=== PATIENT | male | born 1990 | race Hispanic/Latino ===

== ENCOUNTER 2017-05-13 | Emergency (ER) | payer SELFPAY ==
--- NOTE | 2017-05-13 13:26 | EDPHYS ---
Physician Documentation [facility] Name: Isrrael Barrientos Age: 26 yrs Sex: Male : 1990 Arrival Date: 05/13/2017 Time: 11:19 Bed 14 Private MD: ED Physician Salas Frey HPI: 05/13 13:24 This 26 yrs old Male presents to ER via Ambulatory with complaints of Rash. pm1 13:24 The patient's rash thought to be caused by an unknown cause. The rash is located on the pm1 left breast and left upper back. The rash can be described as macular, vesicular. Onset: The symptoms/episode began/occurred 3 day(s) ago. Associated signs and symptoms: Pertinent positives: burning sensation, itching, Headache for 2 days, Pertinent negatives: fever, nausea, swelling of lips, swelling of throat, swelling of tongue, vomiting. Severity of symptoms: in the emergency department the symptoms are worse. Treatment given at home: None. The patient has not experienced similar symptoms in the past. The patient has been recently seen by a physician: Patient was seen at [place] for complaints of chest pain and back pain 1 week ago. Patient without a rash present at that time. Historical: - Allergies: 11:37 No Known Allergies; hb - Home Meds: 11:37 Risperdal Oral [Active]; Paxil Oral [Active]; Lisinopril Oral [Active]; Metformin Oral hb [Active]; - PMHx: 11:37 Bipolar disorder; Anxiety; Diabetes - NIDDM; Hypertension; hb - PSHx: 11:37 None; hb - Immunization history:: Adult Immunizations up to date. - Social history:: Smoking status: Patient uses tobacco products, denies chronic smoking, but will smoke occasionally. ROS: 13:24 Constitutional: Negative for fever, chills, and weight loss, Eyes: Negative for injury, pm1 pain, redness, and discharge, ENT: Negative for injury, pain, and discharge, Neck: Negative for injury, pain, and swelling, Cardiovascular: Negative for chest pain, palpitations, and edema, Respiratory: Negative for shortness of breath, cough, wheezing, and pleuritic chest pain, Abdomen/GI: Negative for abdominal pain, nausea, vomiting, diarrhea, and constipation, Back: Negative for injury and pain, MS/Extremity: Negative for injury and deformity. 13:24 Neuro: Negative for weakness, numbness, tingling, and seizure, Positiv for headache 13:24 Skin: Positive for rash, of the left chest and left upper back. Exam: 13:24 Constitutional: This is a well developed, well nourished patient who is awake, alert, pm1 and in no acute distress. Head/Face: Normocephalic, atraumatic. Eyes: Pupils equal round and reactive to light, extra-ocular motions intact. Lids and lashes normal. Conjunctiva and sclera are non-icteric and not injected. Cornea within normal limits. Periorbital areas with no swelling, redness, or edema. ENT: Nares patent. No nasal discharge, no septal abnormalities noted. Tympanic membranes are normal and external auditory canals are clear. Oropharynx with no redness, swelling, or masses, exudates, or evidence of obstruction, uvula midline. Mucous membranes moist. Neck: Trachea midline, no thyromegaly or masses palpated, and no cervical lymphadenopathy. Supple, full range of motion without nuchal rigidity, or vertebral point tenderness. No Meningismus. Chest/axilla: Normal chest wall appearance and motion. Nontender with no deformity. No lesions are appreciated. Cardiovascular: Regular rate and rhythm with a normal S1 and S2. No gallops, murmurs, or rubs. Normal PMI, no JVD. No pulse deficits. Respiratory: Lungs have equal breath sounds bilaterally, clear to auscultation and percussion. No rales, rhonchi or wheezes noted. No increased work of breathing, no retractions or nasal flaring. Abdomen/GI: Soft, non-tender, with normal bowel sounds. No distension or tympany. No guarding or rebound. No evidence of tenderness throughout. Back: No spinal tenderness. No costovertebral tenderness. Full range of motion. 13:24 Skin: consistent with zoster, Along T4 dermatome on left side of body. 13:24 Neuro: Orientation: is normal, Mentation: is normal, Cerebellar function: normal finger to nose testing, Motor: is normal, moves all fours, strength is normal, strength is 5/5 in all extremities, Sensation: is normal, no obvious gross deficits, Gait: is steady, at a normal pace, without difficulty. Vital Signs: 11:34 BP 136 / 98; Pulse 108; Resp 16; Temp 99(TE); Pulse Ox 98% on R/A; Weight 108.86 kg; hb Height 5 ft. 6 in. (167.64 cm); Pain 4/10; 11:34 Body Mass Index 38.74 (108.86 kg, 167.64 cm) hb MDM: 13:03 Patient medically screened. pm1 13:20 Refusal of service: The patient/guardian displays adequate decision making capability pm1 and despite a detailed discussion of alternatives, benefits, risks, and consequences refuses: CT Scan. 13:24 Data reviewed: vital signs. Data interpreted: Pulse oximetry: on room air is 98 %. pm1 Interpretation: normal. Counseling: I had a detailed discussion with the patient and/or guardian regarding: the historical points, exam findings, and any diagnostic results supporting the discharge/admit diagnosis, the need for outpatient follow up, to return to the emergency department if symptoms worsen or persist or if there are any questions or concerns that arise at home. Administered Medications: No medications were administered Disposition: 15:26 Co-signature as Attending Physician, Salas Frey MD I agree with the assessment and kdr plan of care. Disposition: 05/13/17 13:25 Discharged to Home. Impression: Zoster [herpes zoster]. - Condition is Stable. - Discharge Instructions: Shingles. - Prescriptions for Acyclovir 800 mg Oral Tablet - take 1 tablet by ORAL route 5 times per day for 10 days; 50 tablet. Tylenol- Codeine #3 300-30 mg Oral Tablet - take 2 tablet by ORAL route every 6 hours As needed; 30 tablet. - Medication Reconciliation Form, Thank You Letter, Antibiotic Education form. - Follow up: Emergency Department; When: As needed; Reason: Worsening of condition. Follow up: Private Physician; When: 2 - 3 days; Reason: Recheck today's complaints, Continuance of care, Re-evaluation by your physician. - Problem is new. - Symptoms have improved. Signatures: Salas Frey MD MD [facility] Kellen Reyes RN RN ss Charly Calix, ROSEMARY RN LIAISON pm1 Sheree Canales, RN RN Corrections: (The following items were deleted from the chart) 15:40 13:24 Neuro: Negative for headache, weakness, numbness, tingling, and seizure, pm1 pm1
--- NOTE | 2017-05-13 13:26 | ER ---
Nurse's Notes [facility] Name: Isrrael Barrientos Age: 26 yrs Sex: Male : 1990 Arrival Date: 05/13/2017 Time: 11:19 Bed 14 Private MD: Diagnosis: Zoster [herpes zoster] Presentation: 05/13 11:35 Presenting complaint: Patient states: Itchy, painful rash to left upper chest x 1 week, hb throbbing headache x 2 days. Transition of care: patient was not received from another setting of care. Onset of symptoms is unknown. Care prior to arrival: None. 11:35 Method Of Arrival: Ambulatory hb 11:35 Acuity: JAK 3 hb Historical: - Allergies: 11:37 No Known Allergies; hb - Home Meds: 11:37 Risperdal Oral [Active]; Paxil Oral [Active]; Lisinopril Oral [Active]; Metformin Oral hb [Active]; - PMHx: 11:37 Bipolar disorder; Anxiety; Diabetes - NIDDM; Hypertension; hb - PSHx: 11:37 None; hb - Immunization history:: Adult Immunizations up to date. - Social history:: Smoking status: Patient uses tobacco products, denies chronic smoking, but will smoke occasionally. Screenin:53 Abuse screen: Denies threats or abuse. Nutritional screening: No deficits noted. ae1 Tuberculosis screening: No symptoms or risk factors identified. Fall Risk None identified. Assessment: 13:00 General: Appears in no apparent distress. uncomfortable, obese, Behavior is calm, ae1 cooperative. Pain: Complains of pain in diaphragm, left lateral anterior chest, left lateral posterior chest and left breast. Neuro: Level of Consciousness is awake, alert, obeys commands, Oriented to person, place, time, situation. Cardiovascular: skin is warm and dry with the exception of the right side and right back area where rash is present. Respiratory: Airway is patent Respiratory effort is even, unlabored, Respiratory pattern is regular, symmetrical. GI: No signs and/or symptoms were reported involving the gastrointestinal system. : No signs and/or symptoms were reported regarding the genitourinary system. EENT: No signs and/or symptoms were reported regarding the EENT system. Derm: Rash noted that is itchy, red, raised, vesicular, on diaphragm, left lateral anterior chest, left lateral posterior chest, left nipple and left breast. Musculoskeletal: No signs and/or symptoms reported regarding the musculoskeletal system. 14:00 Reassessment: Patient appears in no apparent distress at this time. No changes from ae1 previously documented assessment. Patient and/or family updated on plan of care and expected duration. Pain level reassessed. 14:15 Reassessment: Awaiting discharge paper and prescriptions to print. ae1 Vital Signs: 11:34 BP 136 / 98; Pulse 108; Resp 16; Temp 99(TE); Pulse Ox 98% on R/A; Weight 108.86 kg; hb Height 5 ft. 6 in. (167.64 cm); Pain 4/10; 11:34 Body Mass Index 38.74 (108.86 kg, 167.64 cm) hb ED Course: 11:19 Patient arrived in ED. mr 11:36 Triage completed. hb 11:37 Arm band placed on right wrist. hb 12:57 Cristhian Landon, RN is Primary Nurse. ae1 13:00 Placed in gown. Bed in low position. Call light in reach. Side rails up X 1. ae1 13:01 Charly Calix NP is PHCP. pm1 13:01 Salas Frey MD is Attending Physician. pm1 14:30 No provider procedures requiring assistance completed. Patient did not have IV access ss during this emergency room visit. Administered Medications: No medications were administered Outcome: 13:25 Discharge ordered by MD. pm1 14:30 Discharged to home ambulatory. ss 14:30 Condition: good 14:30 Discharge instructions given to patient, Instructed on discharge instructions, follow up and referral plans. medication usage, Demonstrated understanding of instructions, follow-up care, medications, Prescriptions given X 2. 14:30 Patient left the ED. ss Signatures: Arielle Diez mr ReyesKellen, CAM LEVY Charly Calix NP UPHOLSTERER APPRENTICE pm1 Sheree Canales RN RN Cristhian Landon RN RN ae1
== END 2017-05-13 14:30 | disposition home or self-care (01) ==
CPT/HCPCS: 99282

== ENCOUNTER 2024-06-20 11:39 | Inpatient (IN) | payer SELFPAY ==
[2024-06-20] MEDS ORDERED: ONDANSETRON 4 MG/2 ML VIAL ONE (13:07)
[2024-06-20] MEDS ORDERED: NA CHLORIDE 0.9% 1,000 ML ONE ×3 (13:08→16:02)
[2024-06-20] MEDS ORDERED: FAMOTIDINE 20 MG/2 ML VIAL IV ONE (13:08)
[2024-06-20] MEDS ORDERED: MORPHINE 4 MG/ML SYR ONE ×2 (13:08→14:18)
[2024-06-20 13:10] LABS: Absolute Lymphocytes (CBC) 1.1 K/uL (0.7-4.9); Absolute Monocytes 1.1 K/uL (0.1-1.3); Absolute Neutrophil 19.7 K/uL (1.8-8.0); Basophils % 0.1 % (0-1.3); Eosinophils % 0.2 % (0-4.4); Hematocrit 42.6 % (39.6-49.0); Hemoglobin 14.8 g/dL (13.6-17.9); Lymphocytes % 4.9 % (15.3-44.8); MCH 32.6 pg (27.0-35.0); MCHC 34.6 g/dL (32.0-36.0); Neutrophils % 89.8 % (41.7-73.7); Platelets 240 thou/uL (152-406); RBC Red Blood Cell Count 4.53 M/uL (4.33-5.43); Red Cell Distribution Width 13.8 % (12.1-15.2)
[2024-06-20 13:41] LABS: Albumin 3.7 g/dL (3.4-5.0); Albumin/Globulin Ratio 1.2 (1.1-1.8); Anion Gap 10.7 mEq/L (5.0-15.0); Bilirubin Total 0.9 mg/dL (0.2-1.0); Potassium 3.7 mEq/L (3.5-5.1); Protein, Total 6.7 g/dL (6.4-8.2)
--- NOTE | 2024-06-20 13:51 | RAD REPORT ---
EXAMINATION: Abdomen Pelvis W Contrast CLINICAL INDICATION: Male, 33 years old.ABD PAIN TECHNIQUE: CT abdomen and pelvis was performed, after the administration of IV contrast, [facility]. Axial, sagittal and coronal reconstructions were obtained. One or more of the following dose reduction techniques were used: Automated exposure control, adjustment of the mA and/o r kV according to patient size, and/or iterative reconstruction. Unless otherwise specified, incidental findings do not require dedicated imaging follow-up. [id number]. COMPARISON: No prior exam. FINDINGS: LOWER CHEST: Trace pleural effusions with atelectasis.No significant pericardial effusion. UPPER GI: No significant abnormality. LIVER: No significant focal abnormality. GALLBLADDER/BILE DUCTS: Sludge versus vicarious excretion of contrast.?No pericholecystic inflammator y changes. PANCREAS: No mass, ductal dilation, or ciera-pancreatic fluid. SPLEEN: Unremarkable. ADRENALS: No adrenal masses. KIDNEYS AND URETERS: No hydronephrosis.No suspicious renal mass. ABDOMINAL AORTA AND OTHER VESSELS: Normal caliber aorta and IVC. PERITONEUM: No abnormal free fluid. No free air. LYMPH NODES: No pathologic lymphadenopathy. ABDOMINAL WALL: Unremarkable SMALL BOWEL/COLON: Circumferential wall thickening involving the colon which extends from the distal transverse colon through the mid sigmoid. Scattered air-fluid levels are present. Fluid present within the distal small bowel. Normal appendix. URINARY BLADDER: Underdistended but grossly unremarkable. REPRODUCTIVE ORGANS: No pathologic process. MUSCULOSKELETAL: No acute or suspicious osseous abnormality. ADDITIONAL FINDINGS: None. IMPRESSION: Colitis extending from the distal transverse colon to the proximal sigmoid. Fluid contents within the more proximal colon consistent with diarrheal. No bowel obstruction. Normal appendix.
[2024-06-20] MEDS ORDERED: CIPROFLOXACIN 400mg IV 400 MG/200 ML BAG IV ONE (14:18)
[2024-06-20] MEDS ORDERED: METRONIDAZOLE 500mg IVPB 500 MG/100 ML BAG IV ONE (14:18)
--- NOTE | 2024-06-20 14:40 | ER ---
Nurse's Notes [facility] Name: Isrrael Barrientos Age: 33 yrs Sex: Male : 1990 Arrival Date: 06/20/2024 Time: 11:39 Bed 10 Private MD: Diagnosis: Abdominal tenderness;Vomiting;Diarrhea, unspecified;Left sided colitis;Fever, unspecified;Elevated white blood cell count;Severe sepsis without septic shock Presentation: 06/20 11:50 Chief complaint: Patient states: he went to [facility] ER on 6 w/abdominal pain and was dx me1 w/constipation and was given laxatives and sent home. Now having liquid bowel movements but pain is worsening. diffuse abd pain 10/10, sharp with nausea/vomiting. Patient does take lithium and is concerned it could be causing his abdominal pain. Coronavirus screen: Vaccine status: Patient reports being unvaccinated. Ebola Screen: No symptoms or risks identified at this time. Initial Sepsis Screen: Does the patient meet any 2 criteria? HR > 90 bpm. Does the patient have a suspected source of infection? No. Patient's initial sepsis screen is negative. Risk Assessment: Do you want to hurt yourself or someone else? Patient reports no desire to harm self or others. Onset of symptoms was June 19, 2024. 11:50 Method Of Arrival: Ambulatory me1 11:50 Acuity: JAK 3 me1 Historical: - Allergies: 11:53 No Known Allergies; me1 - PMHx: 11:53 Anxiety; Bipolar disorder; Diabetes - NIDDM; Hypertension; me1 - PSHx: 11:53 None; me1 - Immunization history:: Adult Immunizations up to date. - Infectious Disease History:: Denies. - Social history:: Smoking status: Patient reports the use of cigarette tobacco products, smokes one-half pack cigarettes per day. - Family history:: not pertinent. Screenin:30 [facility] ED Fall Risk Assessment (Adult) History of falling in the last 3 months, me1 including since admission No falls in past 3 months (0 pts) Confusion or Disorientation No (0 pts) Intoxicated or Sedated No (0 pts) Impaired Gait No (0 pts) Mobility Assist Device Used No (0 pt) Altered Elimination No (0 pt) Score/Fall Risk Level 0 - 2 = Low Risk Maintained a safe environment, Provided non-skid footwear, Hourly rounding (assess needs \T\ fall precautionary measures) done. Abuse screen: Denies threats or abuse. Nutritional screening: No deficits noted. Tuberculosis screening: No symptoms or risk factors identified. Assessment: 13:30 General: Appears uncomfortable, well groomed, well developed, well nourished, Behavior me1 is calm, cooperative, appropriate for age. Pain: Complains of pain in abdomen Pain does not radiate. Pain currently is 10 out of 10 on a pain scale. Quality of pain is described as crampy, sharp, Pain began 2-3 days ago. Is continuous. Neuro: Level of Consciousness is awake, alert, obeys commands, Oriented to person, place, time, situation, Appropriate for age. Cardiovascular: Patient's skin is warm and dry. Respiratory: Airway is patent Respiratory effort is even, unlabored, Respiratory pattern is regular, symmetrical. GI: Abdomen is round Bowel sounds present X 4 quads. Abd is soft X 4 quads Reports lower abdominal pain, upper abdominal pain, nausea, vomiting. : No signs and/or symptoms were reported regarding the genitourinary system. EENT: No signs and/or symptoms were reported regarding the EENT system. Derm: Skin is intact, is healthy with good turgor, Skin is pink, warm \T\ dry. Musculoskeletal: No signs and/or symptoms reported regarding the musculoskeletal system. Vital Signs: 11:50 BP 96 / 69; Pulse 106; Resp 17; Temp 99.2; Pulse Ox 96% ; Weight 113.4 kg; Height 5 ft. me1 8 in. ; Pain 10/10; 13:00 BP 118 / 73; Pulse 102; Resp 16; Pulse Ox 97% ; me1 13:58 BP 133 / 74; Pulse 100; Resp 17; Pulse Ox 96% ; me1 15:00 BP 149 / 79; Pulse 103; Resp 17; Pulse Ox 99% ; me1 16:00 BP 133 / 78; Pulse 109; Resp 20; Temp 100.5(A); Pulse Ox 99% ; me1 17:00 BP 132 / 74; Pulse 102; Resp 18; Pulse Ox 99% ; me1 11:50 Body Mass Index 38.01 (113.40 kg, 172.72 cm) [facility] 11:50 Pain Scale: Adult [facility] [place] Course: 11:43 Patient arrived in ED. gl 11:44 Gurmeet Loo MD is Attending Physician. [facility] 11:53 Triage completed. nc1 11:53 Arm band placed on Patient placed in an exam room. nc1 12:55 Initial lab(s) drawn, by nc, sent to lab. Inserted saline lock: 20 gauge in left db antecubital area, using aseptic technique. Blood collected. Flushed with 10 mL NS. 13:30 Candace Fernandes, CAM is Primary Nurse. nc1 13:30 Patient has correct armband on for positive identification. Bed in low position. Call nc1 light in reach. Side rails up X 1. Provided Education on: POC. Verbalized understanding.. Client placed on continuous cardiac and pulse oximetry monitoring. NIBP monitoring applied. Pulse ox on. NIBP on. 13:30 No provider procedures requiring assistance completed. me1 13:36 CT Abd/Pelvis - IV Contrast Only In Process Unspecified. EDGA 14:38 Radha Cisneros MD is Hospitalizing Provider. [facility] 15:17 Lactate w/ 2H reflex if indic. Sent. nc1 15:39 EKG done, by ED staff, reviewed by Gurmeet Loo MD. me1 16:01 Notified ED physician of a critical lab result(s). lactate 2.8. nc1 16:57 Patient admitted, IV remains in place. [facility] [place]ered Medications: 13:10 Drug: Ondansetron IVP 4 mg IVP once; over 2 minutes Route: IVP; Site: left antecubital; db 13:59 Follow up: Response: No adverse reaction; Nausea is decreased [facility] 13:10 Drug: morphine IVP or IV 4 mg IVP once over 4 mins Route: IVP; Infused Over: 4 mins; db Site: left antecubital; 13:59 Follow up: Response: No adverse reaction; Pain is decreased [facility] 13:10 Drug: NS 0.9% IV 1000 ml IV at 1 bolus Per protocol; to be given as a bolus over 60 db minutes Route: IV; Rate: 1 bolus; Site: left antecubital; 14:56 Follow up: Response: No adverse reaction; IV Status: Completed infusion; IV Intake: me1 1000ml 13:14 Drug: Famotidine IVP 20 mg IVP once; dilute with 10 mL 0.9% NaCl; give over 2 minutes db Route: IVP; Site: left antecubital; 13:59 Follow up: Response: No adverse reaction me1 14:23 Drug: morphine IVP or IV 4 mg IVP once over 4 mins Route: IVP; Infused Over: 4 mins; me1 Site: left antecubital; 15:17 Follow up: Response: No adverse reaction; Pain is unchanged, physician notified me1 14:23 Drug: metroNIDAZOLE IVPB 500 mg 100 ml IVPB at 200 ml/hr once over 30 mins Volume: 100 me1 ml; Route: IVPB; Rate: 200 ml/hr; Infused Over: 30 mins; Site: left antecubital; 14:56 Follow up: Response: No adverse reaction; IV Status: Completed infusion me1 14:57 Drug: Ciprofloxacin IVPB 400 mg 200 ml IVPB once over 60 mins Volume: 200 ml; Route: me1 IVPB; Infused Over: 60 mins; Site: left antecubital; 16:09 Follow up: Response: No adverse reaction; IV Status: Completed infusion; IV Intake: me1 200ml 15:05 Drug: NS 0.9% IV 1000 ml IV at 1 bolus Per protocol; to be given as a bolus over 60 me1 minutes Route: IV; Rate: 1 bolus; Site: left antecubital; 16:49 Follow up: Response: No adverse reaction; IV Status: Completed infusion; IV Intake: me1 1000ml 15:22 Drug: HYDROmorphone IVP 1 mg IVP once Route: IVP; Site: left antecubital; me1 15:39 Follow up: Response: No adverse reaction; Pain is decreased me1 16:08 Drug: NS 0.9% IV (30 ml/kg) 30 ml/kg IV at bolus once; Sepsis Protocol; to be given as me1 a bolus over 90 minutes Route: IV; Rate: bolus; Site: left antecubital; 17:12 Follow up: IV Status: Completed infusion me1 17:12 Follow up: IV Intake: 3402ml ; patient rec'd a total of 3402 mls of NS including what me1 was given prior to this order 16:09 Drug: Rocephin IV 2 grams IV at per protocol once; Given slow IV push per pharmarcy me1 instructions Route: IV; Rate: per protocol; Site: left antecubital; 16:49 Follow up: Response: No adverse reaction; IV Status: Completed infusion me1 Medication: 13:30 VIS not applicable for this client. me1 Intake: 14:56 IV: 1000ml; Total: 1000ml. me1 16:09 IV: 200ml; Total: 1200ml. me1 16:49 IV: 1000ml; Total: 2200ml. me1 17:12 IV: 3402ml; Total: 5602ml. me1 Outcome: 14:39 Decision to Hospitalize by Provider. taylor 16:57 Admitted to Tele accompanied by tech, via wheelchair, room 431, with chart, Report me1 called to tubed up, receipt confirmed with Gurmeet. 16:57 Condition: stable 16:57 Instructed on the need for admit, 17:27 Patient left the ED. me1 Signatures: Dispatcher [employer] Gurmeet Piedra MD MD cha Benton, Danielle, RN RN db Candace Fernandes RN RN me1 Nela Acevedo, Reg Reg gl Corrections: (The following items were deleted from the chart) 16:49 16:00 BP 133 / 78; Pulse 117bpm; Resp 20bpm; Pulse Ox 99%; Temp 100.5F Axillary; me1 me1
--- NOTE | 2024-06-20 14:40 | EDPHYS ---
Physician Documentation [facility] Name: Isrrael Barrientos Age: 33 yrs Sex: Male : 1990 Arrival Date: 06/20/2024 Time: 11:39 Bed 10 Private MD: ED Physician Gurmeet Loo HPI: 06/20 14:30 This 33 yrs old Male presents to ER via Ambulatory with complaints of taylor Abdominal Pain. 14:30 The patient presents with abdominal pain in the upper abdomen, in the lower abdomen. taylor Onset: The symptoms/episode began/occurred 3 day(s) ago. The patient presents to the emergency department with nausea, vomiting, abdominal pain, of the left upper quadrant and left lower quadrant. Possible causes: unknown. The symptoms are aggravated by nothing. The symptoms are alleviated by nothing. The symptoms do not radiate. Associated signs and symptoms: Pertinent positives: abdominal pain, diarrhea, nausea, vomiting. Historical: - Allergies: 11:53 No Known Allergies; me1 - PMHx: 11:53 Anxiety; Bipolar disorder; Diabetes - NIDDM; Hypertension; me1 - PSHx: 11:53 None; me1 - Immunization history:: Adult Immunizations up to date. - Infectious Disease History:: Denies. - Social history:: Smoking status: Patient reports the use of cigarette tobacco products, smokes one-half pack cigarettes per day. - Family history:: not pertinent. ROS: 14:30 Constitutional: Negative for fever, chills, and weight loss, Eyes: Negative for injury, taylor pain, redness, and discharge, ENT: Negative for injury, pain, and discharge, Neck: Negative for injury, pain, and swelling, Cardiovascular: Negative for chest pain, palpitations, and edema, Respiratory: Negative for shortness of breath, cough, wheezing, and pleuritic chest pain, Back: Negative for injury and pain, : Negative for injury, bleeding, discharge, and swelling, MS/Extremity: Negative for injury and deformity, Skin: Negative for injury, rash, and discoloration, Neuro: Negative for headache, weakness, numbness, tingling, and seizure, Psych: Negative for depression, anxiety, suicide ideation, homicidal ideation, and hallucinations, Allergy/Immunology: Negative for hives, rash, and allergies, Endocrine: Negative for neck swelling, polydipsia, polyuria, polyphagia, and marked weight changes, Hematologic/Lymphatic: Negative for swollen nodes, abnormal bleeding, and unusual bruising, 14:30 Abdomen/GI: Positive for abdominal pain, nausea and vomiting, diarrhea, abdominal cramps, abdominal distension, of the right upper quadrant, left upper quadrant and left lower quadrant, Exam: 14:32 Constitutional: This is a well developed, well nourished patient who is awake, alert, taylor and in no acute distress. Head/Face: Normocephalic, atraumatic. Eyes: Pupils equal round and reactive to light, extra-ocular motions intact. Lids and lashes normal. Conjunctiva and sclera are non-icteric and not injected. Cornea within normal limits. Periorbital areas with no swelling, redness, or edema. ENT: Nares patent. No nasal discharge, no septal abnormalities noted. Tympanic membranes are normal and external auditory canals are clear. Oropharynx with no redness, swelling, or masses, exudates, or evidence of obstruction, uvula midline. Mucous membranes moist. Neck: Trachea midline, no thyromegaly or masses palpated, and no cervical lymphadenopathy. Supple, full range of motion without nuchal rigidity, or vertebral point tenderness. No Meningismus. Chest/axilla: Normal chest wall appearance and motion. Nontender with no deformity. No lesions are appreciated. Cardiovascular: Regular rate and rhythm with a normal S1 and S2. No gallops, murmurs, or rubs. Normal PMI, no JVD. No pulse deficits. Respiratory: Lungs have equal breath sounds bilaterally, clear to auscultation and percussion. No rales, rhonchi or wheezes noted. No increased work of breathing, no retractions or nasal flaring. Back: No spinal tenderness. No costovertebral tenderness. Full range of motion. Male : Normal genitalia with no discharge or lesions. Skin: Warm, dry with normal turgor. Normal color with no rashes, no lesions, and no evidence of cellulitis. MS/ Extremity: Pulses equal, no cyanosis. Neurovascular intact. Full, normal range of motion., bilateral aka Neuro: Awake and alert, GCS 15, oriented to person, place, time, and situation. Cranial nerves II-XII grossly intact. Motor strength 5/5 in all extremities. Sensory grossly intact. Cerebellar exam normal. Normal gait. Psych: Awake, alert, with orientation to person, place and time. Behavior, mood, and affect are within normal limits. 14:32 Abdomen/GI: Inspection: distension, that is moderate, Bowel sounds: active, Palpation: moderate abdominal tenderness, in the right upper quadrant, left upper quadrant and left lower quadrant, Liver: no appreciated palpable abnormalities, Hernia: not appreciated, 15:56 ECG was reviewed by the Attending Physician. [facility] Vital Signs: 11:50 BP 96 / 69; Pulse 106; Resp 17; Temp 99.2; Pulse Ox 96% ; Weight 113.4 kg; Height 5 ft. me1 8 in. ; Pain 10/10; 13:00 BP 118 / 73; Pulse 102; Resp 16; Pulse Ox 97% ; me1 13:58 BP 133 / 74; Pulse 100; Resp 17; Pulse Ox 96% ; me1 15:00 BP 149 / 79; Pulse 103; Resp 17; Pulse Ox 99% ; me1 16:00 BP 133 / 78; Pulse 109; Resp 20; Temp 100.5(A); Pulse Ox 99% ; me1 17:00 BP 132 / 74; Pulse 102; Resp 18; Pulse Ox 99% ; me1 11:50 Body Mass Index 38.01 (113.40 kg, 172.72 cm) va1 11:50 Pain Scale: Adult me1 MDM: 11:44 Medical Screening Exam initiated [facility] 14:35 Differential diagnosis: Nonspecific abd pain, gastritis, cholecystitis, pancreatitis, taylor diverticulitis, viral gastroenteritis, gastroenteritis, appendicitis, bowel obstruction, cholecystitis, Cholelithiasis, diverticulitis, gastritis, gastroesophageal reflux disease, GI Bleed, Hepatitis, Mesenteric ischemia or infarction, non-specific abd pain, pancreatitis, Peptic Ulcer Disease, Perf. Duodenal Ulcer, Perf. Gastric Ulcer, Peritonitis, urinary tract infection. Data reviewed: vital signs, nurses notes, lab test result(s), radiologic studies, CT scan. Consideration of Admission/Observation Patient was admitted/placed on observation. Escalation of care including admission/observation considered. I considered the following discharge prescriptions or medication management in the emergency department Medications were administered in the Emergency Department. See MAR. Independent interpretation of the following test(s) in the Emergency Department CT Scan: My interpretation is ct abd/ pelvis. Test considered but Not performed: Ultrasound no abd usg. Historians other than the Patient: Spouse/Significant Other: well informed. Care significantly affected by the following chronic conditions: Diabetes, Hypertension, Obesity, bipolar. 06/20 11:44 Order name: CBC with Diff; Complete Time: 15:55 [facility] 06/20 11:44 Order name: CMP; Complete Time: 14:12 taylor 06/20 11:44 Order name: Lipase; Complete Time: 14:12 taylor 06/20 12:57 Order name: [place]; Complete Time: 14:12 hb 06/20 14:15 Order name: Stool Culture [facility] 06/20 14:37 Order name: Lactate w/ 2H reflex if indic. [facility] 06/20 14:46 Order name: CBC Smear Scan; Complete Time: 15:55 EDMS 06/20 16:02 Order name: Ghost Lactate-NO COLLECT Timer EDHI 06/20 16:19 Order name: Basic Metabolic Panel EDMS 06/20 16:19 Order name: Basic Metabolic Panel EDMS 06/20 16:19 Order name: CBC with Automated Diff EDMS 06/20 16:19 Order name: CBC with Automated Diff EDMS 06/20 16:19 Order name: Magnesium EDMS 06/20 16:19 Order name: Magnesium EDMS 06/20 16:19 Order name: Phosphorus EDMS 06/20 16:19 Order name: Phosphorus EDMS 06/20 16:23 Order name: Blood Culture [facility]HI 06/20 16:25 Order name: Urinalysis w/ reflexes EDMS 06/20 11:44 Order name: CT Abd/Pelvis - IV Contrast Only; Complete Time: 14:12 [facility] 06/20 14:44 Order name: EKG; Complete Time: 14:44 [facility] 06/20 11:44 Order name: IV Saline Lock; Complete Time: 13:15 [facility] 06/20 11:44 Order name: Labs collected and sent; Complete Time: 13:15 taylor 06/20 14:30 Order name: Ice; Complete Time: 14:57 [facility] 06/20 14:44 Order name: EKG - Nurse/Tech; Complete Time: 15:39 [facility] EC:56 Rate is 106 beats/min. Rhythm is regular. QRS [place] is Normal. MS interval is normal. taylor QRS interval is normal. QT interval is normal. No Q waves. T waves are Normal. No ST changes noted. Clinical impression: Sinus tachycardia. Interpreted by me. Reviewed by me. Administered Medications: 13:10 Drug: Ondansetron IVP 4 mg IVP once; over 2 minutes Route: IVP; Site: left antecubital; db 13:59 Follow up: Response: No adverse reaction; Nausea is decreased me1 13:10 Drug: morphine IVP or IV 4 mg IVP once over 4 mins Route: IVP; Infused Over: 4 mins; db Site: left antecubital; 13:59 Follow up: Response: No adverse reaction; Pain is decreased me1 13:10 Drug: NS 0.9% IV 1000 ml IV at 1 bolus Per protocol; to be given as a bolus over 60 db minutes Route: IV; Rate: 1 bolus; Site: left antecubital; 14:56 Follow up: Response: No adverse reaction; IV Status: Completed infusion; IV Intake: me1 1000ml 13:14 Drug: Famotidine IVP 20 mg IVP once; dilute with 10 mL 0.9% NaCl; give over 2 minutes db Route: IVP; Site: left antecubital; 13:59 Follow up: Response: No adverse reaction me1 14:23 Drug: morphine IVP or IV 4 mg IVP once over 4 mins Route: IVP; Infused Over: 4 mins; me1 Site: left antecubital; 15:17 Follow up: Response: No adverse reaction; Pain is unchanged, physician notified me1 14:23 Drug: metroNIDAZOLE IVPB 500 mg 100 ml IVPB at 200 ml/hr once over 30 mins Volume: 100 me1 ml; Route: IVPB; Rate: 200 ml/hr; Infused Over: 30 mins; Site: left antecubital; 14:56 Follow up: Response: No adverse reaction; IV Status: Completed infusion me1 14:57 Drug: Ciprofloxacin IVPB 400 mg 200 ml IVPB once over 60 mins Volume: 200 ml; Route: me1 IVPB; Infused Over: 60 mins; Site: left antecubital; 16:09 Follow up: Response: No adverse reaction; IV Status: Completed infusion; IV Intake: me1 200ml 15:05 Drug: NS 0.9% IV 1000 ml IV at 1 bolus Per protocol; to be given as a bolus over 60 me1 minutes Route: IV; Rate: 1 bolus; Site: left antecubital; 16:49 Follow up: Response: No adverse reaction; IV Status: Completed infusion; IV Intake: me1 1000ml 15:22 Drug: HYDROmorphone IVP 1 mg IVP once Route: IVP; Site: left antecubital; me1 15:39 Follow up: Response: No adverse reaction; Pain is decreased me1 16:08 Drug: NS 0.9% IV (30 ml/kg) 30 ml/kg IV at bolus once; Sepsis Protocol; to be given as me1 a bolus over 90 minutes Route: IV; Rate: bolus; Site: left antecubital; 17:12 Follow up: IV Status: Completed infusion me1 17:12 Follow up: IV Intake: 3402ml ; patient rec'd a total of 3402 mls of NS including what me1 was given prior to this order 16:09 Drug: Rocephin IV 2 grams IV at per protocol once; Given slow IV push per pharmarcy me1 instructions Route: IV; Rate: per protocol; Site: left antecubital; 16:49 Follow up: Response: No adverse reaction; IV Status: Completed infusion me1 Disposition Summary: 06/20/24 14:39 Hospitalization Ordered Notes: Hospitalization Status: Inpatient Admission taylor Provider: Radha Cisneros cha Location: Telemetry/MedSurg (Inpatient) taylor Condition: Stable taylor Problem: new taylor Symptoms: have improved taylor Bed/Room Type: Standard [facility] Room Assignment: 431(06/20/24 16:32) bd Diagnosis - Abdominal tenderness taylor - Vomiting taylor - Diarrhea, unspecified taylor - Left sided colitis taylor - Fever, unspecified taylor - Elevated white blood cell count taylor - Severe sepsis without septic shock taylor Forms: - Medication Reconciliation Form taylor - SBAR form taylor - Leadership Thank You Letter taylor Signatures: Dispatcher [employer] Alana Rivera Corey, MD MD cha Benton, Danielle, RN RN Candace Fernandes RN RN me1 Corrections: (The following items were deleted from the chart) 16:32 14:39 taylor bd
[2024-06-20 14:45] LABS: Blood Morphology Comment NOT SEEN (NOT SEEN); Platelet Estimate ADEQ; White Blood Cell Scan OK (OK)
[2024-06-20] MEDS ORDERED: CEFTRIAXONE 2000 MG/VIAL ONE (15:20)
[2024-06-20] MEDS ORDERED: HYDROMORPHONE HCL 1 MG/ML INJ ONE (15:20)
[2024-06-20] MEDS ORDERED: NA CHLORIDE 0.9% 100 ML ONE (15:20)
[2024-06-20] MEDS ORDERED: NA CHLORIDE 0.9% 500 ML ONE (16:02)
[2024-06-20] MEDS ORDERED: ONDANSETRON 4 MG/2 ML VIAL IV PRN (16:11)
--- NOTE | 2024-06-20 16:27 | P.HP ---
Patient History Date of Service: 06/20/24 Reason for admission: Severe spesis 2/2 transverse colitis History of Present Illness: Isrrael Barrientos is a 33 year old male with Pmhx Bipolar, psychosis, anxiety, DM- NIDDM, HTN, HLD who presents to the ED with severe abdominal pain associated with N/V/D that started two days ago. Family at the bedside reports he was seen at an outside hospital where the CT showed constipation and he was given laxatives and sent home. Today, he is now having diarrhea, continues with abdominal pain with N/V. CT abd/pelvis reports "Colitis extending from the distal transverse colon to the proximal sigmoid. Fluid contents within the more proximal colon consistent with diarrheal. No bowel obstruction. Normal appendix." Laboratory evaluation significant for WBC 21.9, lactic acid 2.8, BUN/creatinine 7/1.38, GFR 69, serum glucose 213, lithium level 1.4. Isrrael denies marijuana, Mounjaro, Ozempic use, and severe abdominal pain in the past. Isrrael be admitted to hospitalist service for further evaluation and treatment of severe sepsis secondary to transfers colitis. Allergies No Known Allergies Allergy (Unverified 03/18/11 18:59) Home Medications: Depakote ER 03/18/11 - Past Medical/Surgical History -: Anxiety -: Psychosis -: Bipolar -: Hypertension -: Hyperlipidemia -: DMNIDDM Past Surgical History: Patient denies surgical history - Family History Family History: Reviewed- Non-Contributory - Social History Smoking Status: Never smoker Alcohol use: No CD- Drugs: No Review of Systems Other: per HPI Physical Examination - Physical Exam General: Alert, In no apparent distress, Oriented x3 HEENT: Atraumatic, Normocephalic Neck: 2+ carotid pulse no bruit, JVD not distended Respiratory: Clear to auscultation bilaterally, Normal air movement Cardiovascular: Normal pulses, Regular rate/rhythm, Normal S1 S2 Capillary refill: <2 Seconds Gastrointestinal: Hypoactive, Distended, Tenderness Musculoskeletal: No clubbing Integumentary: No rashes Neurological: Normal speech, Normal tone - Studies Laboratory Data (last 24 hrs) 06/20/24 06/20/24 12:55 12:55 WBC 21.90 H Hgb 14.8 Hct 42.6 Plt Count 240 Sodium 132 L Potassium 3.7 BUN 7 Creatinine 1.38 H Glucose 213 H Total Bilirubin 0.9 AST 14 L ALT 28 Alkaline Phosphatase 60 Lipase 20 Assessment and Plan - Plan Assessment and plan Severe sepsis secondary to transverse colitis Severe abdominal pain with nausea, vomiting, diarrhea -Severe sepsis criteria WBC 21.9, lactic acid 2.8, blood pressure 96/69, heart rate 106 -CT abd/pelvis reports "Colitis extending from the distal transverse colon to the proximal sigmoid. Fluid contents within the more proximal colon consistent with diarrheal. No bowel obstruction. Normal appendix." -Follow blood cultures and stool cultures -Urinalysis with culture ordered -Cipro/Flagyl - IV fluid 30 mcg/kg given in the ED - Continuous IV fluids overnight - N.p.o. with sips of water GINGER -BUN/creatinine 70/1.48, GFR 69 -IV fluids -Monitor in a.m. labs Diabetes mellitus with hyperglycemia- NIDDM -Accu-Chek with sliding scale insulin -A1c in the a.m. Bipolar Psychosis Anxiety -[place] 1.4, will hold next dose - Continue home medications as appropriate Hypertension Hyperlipidemia - Continue home medications DVT PPx heparin Full code LOS 2 to 3 days Discharge Plan: Home Plan to discharge in: 72 Hours - Advance Directives Does patient have a Living Will: No Does patient have a Durable POA for Healthcare: No
[2024-06-20] MEDS: METRONIDAZOLE 500mg IVPB 500 MG/100 ML BAG IV SCH (17:52)
[2024-06-20] MEDS: NA CHLORIDE 0.9% 1,000 ML IV SCH (17:52)
[2024-06-20] MEDS: HYDROMORPHONE HCL 0.5 MG/0.5 ML INJ IV ONE (18:08)
[2024-06-20] MEDS: ACETAMINOPHEN 325 MG TABLET PO PRN (18:10)
[2024-06-20 18:32] VITALS: BMI 38.7
[2024-06-20] MEDS: HEPARIN 5000 UNIT/ML 1 ML VIAL SQ SCH (22:13)
[2024-06-20] MEDS: HYDROMORPHONE HCL 1 MG/ML INJ IV PRN (22:13)
[2024-06-20] MEDS: CIPROFLOXACIN 400mg IV 400 MG/200 ML BAG IV SCH (22:14)
[2024-06-20] MEDS: haloperidoL 5 MG TAB PO SCH (23:00)
[2024-06-20] MEDS: lisinopriL 20 MG TAB PO SCH (23:00)
[2024-06-20] MEDS: QUETIAPINE 100MG TAB PO SCH (23:29)
[2024-06-20] MEDS: ATORVASTATIN 20 MG TAB PO SCH (23:29)
[2024-06-20] MEDS: PANTOPRAZOLE 40MG TABLET PO SCH (23:29)
[2024-06-21 06:32] LABS: Anion Gap 7.6 mEq/L (5.0-15.0); Magnesium 2.2 mg/dL (1.6-2.4); Potassium 3.6 mEq/L (3.5-5.1)
[2024-06-21 06:36] LABS: Absolute Eosinophils 0.1 K/uL (0-0.5); Absolute Lymphocytes (CBC) 1.9 K/uL (0.7-4.9); Absolute Monocytes 1.7 K/uL (0.1-1.3); Absolute Neutrophil 14.5 K/uL (1.8-8.0); Basophils % 0.1 % (0-1.3); Eosinophils % 0.4 % (0-4.4); Hemoglobin 12.9 g/dL (13.6-17.9); Lymphocytes % 10.6 % (15.3-44.8); MCH 32.7 pg (27.0-35.0); MCV 93.5 fL (80-100); MPV 8.9 fL (7.6-11.3); Monocytes % 9.3 % (3.3-12.3); Neutrophils % 79.6 % (41.7-73.7); Phosphorus 1.4 mg/dL (2.5-4.9); Platelets 213 thou/uL (152-406); RBC Red Blood Cell Count 3.95 M/uL (4.33-5.43); Red Cell Distribution Width 14.1 % (12.1-15.2)
[2024-06-21] MEDS: POTASS/SODIUM PHOSPHATE 1 PKT POWD.PACK PO SCH (08:00)
[2024-06-21] MEDS: METFORMIN HCL 500 MG TAB PO SCH (09:15)
[2024-06-21] MEDS: lamoTRIgine 100 MG TAB PO SCH (09:15)
--- NOTE | 2024-06-21 11:41 | EKG ---
Test Date: 2024-06-20 Test Time: 15:36:42 Field Cashier: MEASUREMENT RESULTS: Intervals: Rate: 106 DC: 162 QRSD: 96 QT: 336 QTc: 446 [place]: P: 61 DC: 162 QRS: 0 T: 59 INTERPRETIVE STATEMENTS: Sinus tachycardia Otherwise normal ECG Compared to ECG 09/21/2007 00:34:08 Sinus rhythm no longer present Sinus arrhythmia no longer present ST (T wave) deviation no longer present Prolonged QT interval no longer present Electronically Signed On 06-21-24 11:39:17 CDT by Pawel Cummings
[2024-06-21] MEDS: POTASSIUM PHOS IN 0.9 % NACL 15 MMOL/250 ML BAG IV ONE (11:54)
--- NOTE | 2024-06-21 14:19 | P.PN ---
Date of Service: 06/21/24 Subjective continues with abdominal pain Encouraged ambulation ROS 10 point ROS as noted above, otherwise negative Physical Exam General: Alert and Oriented x3, NAD HEENT: Atraumatic, Normocephalic Neck: 2+ carotid pulse no bruit, JVD not distended Respiratory: Clear BBS, Normal air movement, on RA Cardiovascular: Normal pulses, mild tachycardia, Normal S1 S2 Capillary refill: <2 Seconds Gastrointestinal: Hypoactive, Distended, Tenderness to palpation Musculoskeletal: No clubbing Integumentary: No rashes Neurological: Normal speech, Normal tone Vitals Reviewed Problem list Severe sepsis secondary to transverse colitis Severe abdominal pain with nausea, vomiting, diarrhea Hypophosphatemia GINGER Diabetes mellitus with hyperglycemia- NIDDM Bipolar Psychosis Anxiety Hypertension Hyperlipidemia Assessment and Plan Severe sepsis secondary to transverse colitis Severe abdominal pain with nausea, vomiting, diarrhea Hypophosphatemia -Severe sepsis criteria WBC 21.9, lactic acid 2.8, blood pressure 96/69, heart rate 106 -CT abd/pelvis reports "Colitis extending from the distal transverse colon to the proximal sigmoid. Fluid contents within the more proximal colon consistent with diarrheal. No bowel obstruction. Normal appendix." -Follow blood cultures and stool cultures -Urinalysis with culture ordered - Continue Cipro/Flagyl - IV fluid 30 mcg/kg given in the ED- sepsis reassessment completed - Continuous IV fluids overnight - N.p.o. with PO meds and sips of water - Monitor electrolytes and replace as needed -Consulted Dr. Harrison GINGER- resolved -BUN/creatinine 70/1.48, GFR 69 -IV fluids -continue to Monitor Diabetes mellitus with hyperglycemia- NIDDM -Accu-Chek with sliding scale insulin -Glucose more in control -A1c in the a.m. Bipolar Psychosis Anxiety -[place] 1.4, will hold next dose - Continue home medications as appropriate Hypertension Hyperlipidemia - Continue home medications DVT PPx heparin Full code LOS 2 to 3 days Discharge Plan: Home Plan to discharge in: 72 Hours
--- NOTE | 2024-06-21 20:08 | CON ---
Date of Consultation: 06/21/2024 Reason For Consultation: Abdominal pain. History Of Present Illness: The patient is a 33-year-old gentleman with multiple medical problems, w ho presented to the emergency room with severe diffuse abdominal pain associated with nausea, vomitin g, and diarrhea. However, he states that he has not had diarrhea since he has been admitted. The kelvin anderson was seen at an outside hospital, where the CAT scan reportedly showed constipation. He was giv en laxative and sent home. Yesterday, he was having diarrhea. He came and he had a CAT scan done. He denies any sore throat, runny nose, cough, headaches, or dizziness. No chest pain. No fever or c hills. No blood in his stool. No dysuria, hematuria. Review of Systems: Otherwise unremarkable. Past Medical History: Significant for anxiety, psychosis, bipolar disorder, hypertension, hyperlipid emia, type 2 diabetes. Past Surgical History: The patient denies surgical history. Allergies: NO ALLERGIES. Social History: The patient denies smoking or drinking alcohol. Physical Examination: Vital Signs: Stable. He is afebrile. General: He is awake, alert. Head and Neck: No masses. Chest: Clear. Heart: S1, S2. Abdomen: Soft, nondistended. Hyperactive bowel sounds. There is tenderness in the left upper quadr ant, left middle quadrant, and left lower quadrant, but there is no rebound. No rigidity. No guardi ng. There is no evidence of peritonitis. Extremities: Adequately perfused, nontender. Neuro: Nonfocal. Laboratory Data: White count on admission yesterday was 21.9, today is 18.3, there is left shift, it is slightly improved. Chemistry reviewed. His phosphorus is low and is being replaced. His lactic acid on admission was 2.8. Followup lactic acid was 1.0. His lithium level is slightly high at 1.[address] of the abdomen and pelvis reviewed, essentially shows distal transverse colon, descending colon , and proximal sigmoid colon colitis. There is no free air. There is no pneumatosis. There are no other concerning findings on the CAT scan. Assessment: A 33-year-old gentleman with multiple medical problems with colitis. Recommendations: At this time, IV antibiotics is appropriate. N.p.o., IV fluids, parenteral pain ma nagement. We will follow this patient closely. The patient does not have a surgical abdomen at this time. The patient does, however, need a full GI evaluation to rule out inflammatory bowel disease o r other etiology. If he does have diarrhea continues on this admission, the patient would benefit fr om getting a C diff evaluation. Plan of care was discussed in detail with the patient as well as the Hospitalist Team. ALIA/CHRISTOPHER Voice ID: [id number] Report ID: [id number]
[2024-06-22 05:19] LABS: Absolute Eosinophils 0.2 K/uL (0-0.5); Absolute Lymphocytes (CBC) 1.7 K/uL (0.7-4.9); Absolute Neutrophil 9.3 K/uL (1.8-8.0); Basophils % 0.2 % (0-1.3); Eosinophils % 1.4 % (0-4.4); Hematocrit 34.2 % (39.6-49.0); Hemoglobin 11.9 g/dL (13.6-17.9); MCH 32.7 pg (27.0-35.0); MCHC 34.7 g/dL (32.0-36.0); MCV 94.5 fL (80-100); Monocytes % 7.9 % (3.3-12.3); Neutrophils % 76.5 % (41.7-73.7); Platelets 222 thou/uL (152-406); RBC Red Blood Cell Count 3.62 M/uL (4.33-5.43)
[2024-06-22 05:35] LABS: Anion Gap 6.6 mEq/L (5.0-15.0); Phosphorus 2.3 mg/dL (2.5-4.9); Potassium 3.6 mEq/L (3.5-5.1)
[2024-06-22] MEDS: MAGNESIUM SULFATE 1 gm IVPB 1 GM/100 ML BAG IV ONE (09:15)
--- NOTE | 2024-06-22 11:39 | PN ---
Date of Progress Note: 06/22/2024 Subjective: The patient feels much better. Objective: Vital Signs: Stable, afebrile. Abdomen: Soft, nondistended, less tender. No peritonitis. Laboratory Data: Reviewed. White count is down to 12.1. Assessment: Colitis. Recommendation: Begin diet with clear liquids, advance slowly. Dietary consultation. Continue IV a ntibiotics. The patient can probably be discharged home in 24 to 48 hours on oral antibiotics for 2 weeks and follow up with GI. Plan of care discussed in detail with the hospitalist. ALIA/CHRISTOPHER Voice ID: [id number] Report ID: [id number]
[2024-06-22] MEDS: POTASSIUM PHOS IN 0.9 % NACL 15 MMOL/250 ML BAG IV ONE (12:36)
[2024-06-22] MEDS: SIMETHICONE 80 MG CHEWABLE TAB PO PRN (17:46)
--- NOTE | 2024-06-22 20:40 | P.PN ---
Date of Service: 06/22/24 Subjective Abdominal pain better Having some BM, advancing diet slowly ROS 10 point ROS as noted above, otherwise negative Physical Exam General: AAO x3, NAD Neck: 2+ carotid pulse no bruit, JVD not distended Respiratory: Clear BBS, Normal air movement, on RA Cardiovascular: NSR, Normal S1 S2 Capillary refill: <2 Seconds Gastrointestinal: Hypoactive, Distended, Tenderness to palpation Musculoskeletal: No clubbing Integumentary: No rashes Neurological: Normal speech, Normal tone Vitals Reviewed Problem list Severe sepsis secondary to transverse colitis Severe abdominal pain with nausea, vomiting, diarrhea Hypophosphatemia GINGER Diabetes mellitus with hyperglycemia- NIDDM Bipolar Psychosis Anxiety Hypertension Hyperlipidemia Assessment and Plan Severe sepsis secondary to transverse colitis Severe abdominal pain with nausea, vomiting, diarrhea Hypophosphatemia -Severe sepsis criteria WBC 21.9, lactic acid 2.8, blood pressure 96/69, heart rate 106 -CT abd/pelvis reports "Colitis extending from the distal transverse colon to the proximal sigmoid. Fluid contents within the more proximal colon consistent with diarrheal. No bowel obstruction. Normal appendix." -Follow blood cultures and stool cultures -Urinalysis with culture ordered - Continue Cipro/Flagyl - IV fluid 30 mcg/kg given in the ED- sepsis reassessment completed - Continuous IV fluids - N.p.o. with PO meds and sips of water - Monitor electrolytes and replace as needed -Consulted Dr. Harrison GINGER- resolved -BUN/creatinine 4/0.66, GFR 126 -IV fluids -continue to Monitor Diabetes mellitus with hyperglycemia- NIDDM -Accu-Chek with sliding scale insulin -Glucose more in control -A1c in the a.m. Bipolar Psychosis Anxiety -[place] 1.4, no 0.2, will restart lithium once dose is obtained - Continue home medications as appropriate Hypertension Hyperlipidemia - Continue home medications DVT PPx heparin Full code LOS 2 to 3 days Discharge Plan: Home Plan to discharge in: 72 Hours
[2024-06-22] MEDS: LITHIUM CARBONATE 300 MG CAP PO SCH (22:24)
[2024-06-23 05:53] LABS: Absolute Eosinophils 0.2 K/uL (0-0.5); Absolute Lymphocytes (CBC) 1.9 K/uL (0.7-4.9); Absolute Monocytes 0.6 K/uL (0.1-1.3); Absolute Neutrophil 5.8 K/uL (1.8-8.0); Basophils % 0.3 % (0-1.3); Eosinophils % 2.3 % (0-4.4); Hematocrit 34.8 % (39.6-49.0); Hemoglobin 12.1 g/dL (13.6-17.9); Lymphocytes % 22.7 % (15.3-44.8); MCH 32.5 pg (27.0-35.0); MCHC 34.6 g/dL (32.0-36.0); MCV 93.7 fL (80-100); MPV 8.7 fL (7.6-11.3); Monocytes % 6.9 % (3.3-12.3); Neutrophils % 67.8 % (41.7-73.7); Nucleated Red Blood Cells % 0.1 % (0-0); Platelets 277 thou/uL (152-406); RBC Red Blood Cell Count 3.72 M/uL (4.33-5.43); Red Cell Distribution Width 13.8 % (12.1-15.2)
[2024-06-23 06:01] LABS: Anion Gap 7.7 mEq/L (5.0-15.0); Phosphorus 2.4 mg/dL (2.5-4.9); Potassium 3.7 mEq/L (3.5-5.1)
[2024-06-23] MEDS: LITHIUM CARBONATE 300 MG CAP PO SCH (07:57)
[2024-06-23] MEDS: POTASSIUM PHOS IN 0.9 % NACL 15 MMOL/250 ML BAG IV ONE (09:10)
[2024-06-23 09:30] VITALS: O2SAT 97
--- NOTE | 2024-06-23 10:10 | RAD REPORT ---
Exam:Abdomen W Erect Clinical history: Abdominal pain FINDINGS: The bowel gas pattern is unremarkable There does not appear to be a significant amount of stool within the colon. No free air visualized beneath the diaphragm. No significant calcification is displayed.
--- NOTE | 2024-06-23 11:29 | PN ---
Date of Progress Note: 06/23/2024 Subjective: The patient is awake, alert, feels much better. Objective: Vital Signs: Stable, afebrile. Abdomen: Soft, nondistended, nontender. Positive bowel sounds. Laboratory Data: White count is normal. There is no left shift. Assessment: Colitis, improving. Recommendations: Advance diet and then okay to discharge from a surgical standpoint on antibiotics f or 2 weeks. Cipro and Flagyl should be adequate. The patient is to follow up with GI in 4 to 6 week s for a colonoscopy. Plan of care discussed with the Hospitalist Team as well as the patient and bijan loyd. /MODL Voice ID: [id number] Report ID: [id number]
[2024-06-23 16:13] VITALS: BP 132/72; TEMP 98.1
--- NOTE | 2024-06-24 05:19 | P.DS ---
Admission Date: 06/20/24 Discharge Date: 06/23/24 Disposition: ROUTINE DISCHARGE Discharge Condition: GOOD Reason for Admission: Severe spesis 2/2 transverse colitis Brief History of Present Illness: Diagnosis Severe sepsis secondary to transverse colitis Severe abdominal pain with nausea, vomiting, diarrhea Hypophosphatemia GINGER Diabetes mellitus with hyperglycemia- NIDDM Bipolar Psychosis Anxiety Hypertension Hyperlipidemia HPI 06/20/24 Isrrael Barrientos is a 33 year old male with Pmhx Bipolar, psychosis, anxiety, DM- NIDDM, HTN, HLD who presents to the ED with severe abdominal pain associated with N/V/D that started two days ago. Family at the bedside reports he was seen at an outside hospital where the CT showed constipation and he was given laxatives and sent home. Today, he is now having diarrhea, continues with abdominal pain with N/V. CT abd/pelvis reports "Colitis extending from the distal transverse colon to the proximal sigmoid. Fluid contents within the more proximal colon consistent with diarrheal. No bowel obstruction. Normal appendix." Laboratory evaluation significant for WBC 21.9, lactic acid 2.8, BUN/creatinine 7/1.38, GFR 69, serum glucose 213, lithium level 1.4. Isrrael denies marijuana, Mounjaro, Ozempic use, and severe abdominal pain in the past. Isrrael be admitted to hospitalist service for further evaluation and treatment of severe sepsis secondary to transfers colitis. Hospital Course: Severe sepsis secondary to transverse colitis Severe abdominal pain with nausea, vomiting, diarrhea Hypophosphatemia Severe sepsis criteria WBC 21.9, lactic acid 2.8, blood pressure 96/69, heart rate 106- aggressive IVF tolerated and reassessment completed CT abd/pelvis reports "Colitis extending from the distal transverse colon to the proximal sigmoid. Fluid contents within the more proximal colon consistent with diarrheal. No bowel obstruction. Normal appendix." Blood and stool cultures- NGTD Tolerated and improved with Cipro/Flagyl Monitored electrolytes and replace as needed Patient was seen by Dr. Harrison and will follow outpatient Dietary education provided for fiber restrictive and consistent carb diet GINGER 2/2 dehydration- resolved Corrected with IVF Diabetes mellitus with hyperglycemia- NIDDM Glucose at appropriate level Bipolar Psychosis Anxiety Monitored lithium level carefully Follow up outpatient Hypertension Hyperlipidemia Continued home medications On 06/23/24, Isrrael was seen on morning rounds hemodynamically stable, abdominal pain has significantly resolved and reports feeling more comfortable, abdominal x-ray reporting "there is not appear to be a significant amount of stool within the colon, bowel gas pattern is unremarkable, no free air visualized beneath the diaphragm, no significant calcification is displayed." Dr. Harrison has evaluated and cleared for discharge with follow up outpatient. Ciprofloxacin, flagyl, Protonix, Lactinex prescribed. Physical Exam General: Oriented x3, NAD, afebrile Neck: 2+ carotid pulse no bruit, JVD not distended Respiratory: Clear BBS, nonlabored breathing, on RA Cardiovascular: NSR, Normal S1 S2, no murmur noted Capillary refill: <2 Seconds Gastrointestinal: Distended, Tenderness to palpation Musculoskeletal: No clubbing Integumentary: No rashes Neurological: Normal speech, Normal tone Vital Signs/Physical Exam: Temp Pulse Resp BP Pulse Ox 98.1 F 84 16 132/72 97 06/23/24 16:00 06/23/24 16:00 06/23/24 16:00 06/23/24 16:00 06/23/24 16:00 Laboratory Data at Discharge: WBC 8.50 thou/uL (4.3-10.9) 06/23/24 05:18 Hgb 12.1 g/dL (13.6-17.9) L 06/23/24 05:18 Hct 34.8 % (39.6-49.0) L 06/23/24 05:18 Plt Count 277 thou/uL (152-406) 06/23/24 05:18 Sodium 140 mEq/L (136-145) D 06/23/24 05:18 Potassium 3.7 mEq/L (3.5-5.1) 06/23/24 05:18 BUN 3 mg/dL (7-18) L 06/23/24 05:18 Creatinine 0.70 mg/dL (0.70-1.30) 06/23/24 05:18 Glucose 128 mg/dL (74-106) H 06/23/24 05:18 Phosphorus 2.4 mg/dL (2.5-4.9) L 06/23/24 05:18 Magnesium Cancelled 06/23/24 14:15 Total Bilirubin 0.9 mg/dL (0.2-1.0) 06/20/24 12:55 AST 14 U/L (15-37) L 06/20/24 12:55 ALT 28 U/L (16-61) 06/20/24 12:55 Alkaline Phosphatase 60 U/L (45-117) 06/20/24 12:55 Lipase 20 U/L (13-75) 06/20/24 12:55 Home Medications: Esomeprazole Magnesium 40 mg PO BEDTIME 06/20/24 Metformin HCl 1,000 mg PO BID 06/20/24 Quetiapine [Seroquel*] 400 mg PO BEDTIME 06/20/24 Simvastatin 1 tab PO BEDTIME 06/20/24 haloperidoL [Haldol] 5 mg PO BID 06/20/24 lamoTRIgine [Lamictal] 200 mg PO DAILY 06/20/24 lisinopriL [Lisinopril] 40 mg PO BEDTIME 06/20/24 Acidophilus/Bulgaricus [Lactinex Tablet Chewable] 1 each PO DAILY 10 Days #10 tab.chew 06/23/24 Ciprofloxacin HCl [Cipro 500 MG Tablet] 500 mg PO BID 10 Days #20 tab 06/23/24 [place] Carbonate [Lithotabs *] 600 mg PO DAILY cap 06/23/24 [place] Carbonate [Lithotabs *] 900 mg PO BEDTIME cap 06/23/24 Pantoprazole [Protonix Tab] 40 mg PO DAILY 30 Days #30 tab 06/23/24 metroNIDAZOLE [Flagyl] 500 mg PO Q8H 10 Days #30 tab 06/23/24 New Medications: Ciprofloxacin HCl [Cipro 500 MG Tablet] 500 mg PO BID 10 Days #20 tab metroNIDAZOLE [Flagyl] 500 mg PO Q8H 10 Days #30 tab Acidophilus/Bulgaricus [Lactinex Tablet Chewable] 1 each PO DAILY 10 Days #10 tab.chew Pantoprazole [Protonix Tab] 40 mg PO DAILY 30 Days #30 tab Physician Discharge Instructions: 1. Please call and schedule a follow-up appointment with your PCP in 3-5 days - Please follow-up with your PCP for medication refills/adjustments 2. Please call and schedule a follow-up appointment with in 3-5 days 3. Continue fiber restricted, soft GI, carb consistent diet 4. activity restrictions, as tolerated 5. Return to the ED if symptoms worsen New medications Ciprofloxacin 500 mg twice daily x 5 days Flagyl 500 mg three times daily x5 days Probiotics once daily x 10 days protonix 40 mg daily x 30 days Diet: soft GI Activity: Ad heladio Followup: Alana Aoms NP [Primary Care Provider] - (follow up in 3-5 days, call to schedule an appointment)
== END 2024-06-23 17:55 | disposition home or self-care (01) | DRG 872 ==
LOC: ER 11:39 → ERHOLD 16:11 → 4TH 17:11
PROVIDERS: ADMIT Hospitalist; ATTEND Hospitalist
DX: A41.9 Sepsis, unspecified organism (principal); K51.50 Left sided colitis without complications; N17.9 Acute kidney failure, unspecified; R65.20 Severe sepsis without septic shock; I10 Essential (primary) hypertension; F31.9 Bipolar disorder, unspecified; E78.5 Hyperlipidemia, unspecified; F41.9 Anxiety disorder, unspecified; K59.00 Constipation, unspecified; E66.9 Obesity, unspecified; E83.39 Other disorders of phosphorus metabolism; E11.65 Type 2 diabetes mellitus with hyperglycemia; F29 Unspecified psychosis not due to a substance or known physiological condition; F17.210 Nicotine dependence, cigarettes, uncomplicated; Z68.38 Body mass index [BMI] 38.0-38.9, adult; Z79.899 Other long term (current) drug therapy
CPT/HCPCS: 36415; 74019; 74177; 80048; 80053; 80178; 82947; 83036; 83605; 83690; 83735; 84100; 85025; 87040; 93005; 96361; 96365; 96367; 96368; 96375; 99285; J0696; J0744; J1171; J1644; J2405; J3475; J7030; J7040; Q9967

== ENCOUNTER 2024-11-17 17:13 | Inpatient (IN) | payer SELFPAY ==
[2024-11-17] MEDS ORDERED: ONDANSETRON 4 MG/2 ML VIAL ONE (17:56)
[2024-11-17] MEDS ORDERED: NA CHLORIDE 0.9% 0 ML ONE (17:56)
[2024-11-17] MEDS ORDERED: NA CHLORIDE 0.9% 1,000 ML ONE ×3 (18:01→22:33)
[2024-11-17 18:07] LABS: Absolute Lymphocytes (CBC) 2.3 K/uL (0.7-4.9); Hematocrit 39.1 % (39.6-49.0); Hemoglobin 13.6 g/dL (13.6-17.9); MCH 31.7 pg (27.0-35.0); MCHC 34.7 g/dL (32.0-36.0); MCV 91.3 fL (80-100); MPV 9.1 fL (7.6-11.3); Nucleated RBC Absolute Count 0.0 (0-0); Nucleated Red Blood Cells % 0.1 % (0-0); RBC Red Blood Cell Count 4.29 M/uL (4.33-5.43); White Blood Count 10.00 thou/uL (4.3-10.9)
[2024-11-17 18:23] LABS: Influenza A Ag Negative; Influenza B Ag Negative; SARS-CoV-2 Antigen Rapid Res Negative (Negative)
[2024-11-17 18:29] LABS: ALT/SGPT 64.0 U/L (16-61); AST/SGOT 20.0 U/L (15-37); Albumin 4.5 g/dL (3.4-5.0); Albumin/Globulin Ratio 1.4 (1.1-1.8); Alkaline Phosphatase 59.0 U/L (45-117); Anion Gap 16.1 mEq/L (5.0-15.0); BUN Blood Urea Nitrogen 46.0 mg/dL (7-18); Globulin 3.3 g/dL (2.3-3.5); Glucose Level 187.0 mg/dL (74-106); Lipase 51.0 U/L (13-75); Potassium 4.1 mEq/L (3.5-5.1)
--- NOTE | 2024-11-17 18:36 | EDPHYS ---
Physician Documentation [facility] Name: Isrrael Barrientos Age: 33 yrs Sex: Male : 1990 Arrival Date: 11/17/2024 Time: 17:13 Bed 13 Private MD: ED Physician Gonzalo Willis HPI: 11/17 17:38 This 33 yrs old Male presents to ER via Ambulatory with complaints of Pain All sb4 Over, Fatigue, Dizziness, Decreased Appetite. 17:38 Patient reports nausea and vomiting that began 2 days ago. He states he has sb4 subsequently developed body aches, fatigue, dizziness, generalized weakness. He does have a history of bipolar disorder and takes lithium but also works outside a lot so if not sure if this is being caused by his lithium or from heat exhaustion. Significant other states that they decreased his lithium dose to try and help with his symptoms. He has not had a lithium level checked in quite some time nor has he seen a psychiatrist. Denies any chest pain or shortness of breath. Historical: - Allergies: 17:36 No Known Allergies; me1 - Home Meds: 21:43 metformin 1,000 mg oral tablet 2 times per day [Active]; lisinopril 40 mg oral tablet 1 ss12 tab daily [Active]; simvastatin 40 mg oral tablet 1 tab daily [Active]; omeprazole 40 mg Oral capsule,delayed release (e.c.) daily [Active]; lithium carbonate 150 mg oral capsule daily [Active]; haloperidol 5 mg oral tablet 1 tab daily [Active]; Seroquel 100 mg oral tablet 1 tab [Active]; lamotrigine 200 mg oral tablet 1 tab daily [Active]; - PMHx: 17:36 Anxiety; Bipolar disorder; Diabetes - NIDDM; Hypertension; Gastroesophageal reflux me1 disease; - PSHx: 17:36 None; me1 - Immunization history:: Adult Immunizations up to date. - Infectious Disease History:: Denies. - Social history:: Smoking status: Reported history of juuling and/or vaping. ROS: 17:38 Cardiovascular: Negative for chest pain, palpitations, and edema, Respiratory: Negative sb4 for shortness of breath, cough, wheezing, and pleuritic chest pain, 17:38 Constitutional: Positive for body aches, fatigue, malaise, 17:38 Abdomen/GI: Positive for nausea and vomiting, 17:38 Neuro: Positive for dizziness, 17:38 All other systems are negative, Exam: 17:38 Head/Face: Normocephalic, atraumatic. Eyes: Extra-ocular motions intact. Periorbital sb4 areas with no swelling, redness, or edema. ENT: Mucous membranes moist. Cardiovascular: Regular rate and rhythm with a normal S1 and S2. Respiratory: No increased work of breathing, no retractions or nasal flaring. Abdomen/GI: Soft, non-tender, no distension. Skin: Warm, dry with normal turgor. Normal color with no rashes, no lesions, and no evidence of cellulitis. 17:38 Constitutional: The patient appears in no acute distress, alert, awake, Vital Signs: 17:30 BP 94 / 45; Pulse 75; Resp 16; Pulse Ox 96% on R/A; db 17:33 BP 94 / 48; Pulse 74; Resp 17; Temp 98; Pulse Ox 96% ; Weight 113.4 kg; Height 5 ft. 8 me1 in. ; Pain 10/10; 18:00 BP 98 / 47; Pulse 73; Resp 16; Pulse Ox 97% on R/A; db 18:34 BP 98 / 49; Pulse 72; Resp 16; Pulse Ox 98% on R/A; db 19:45 BP 97 / 44; Pulse 68; Resp 16; Pulse Ox 100% on R/A; ss12 20:30 BP 94 / 39; Pulse 71; Resp 16; Pulse Ox 99% on R/A; ss12 21:30 BP 98 / 50; Pulse 84; Resp 16; Pulse Ox 97% on R/A; ss12 22:13 BP 91 / 45; Pulse 72; Resp 16; Pulse Ox 95% on R/A; ss12 23:30 BP 114 / 63; Pulse 85; Resp 16; Pulse Ox 97% on R/A; ss12 17:33 Body Mass Index 38.01 (113.40 kg, 172.72 cm) me1 17:33 Pain Scale: Adult me1 MDM: 17:24 Medical Screening Exam initiated sb4 17:41 Differential diagnosis: viral Infection, gastroenteritis, GINGER, rhabdomyolysis, lithium sb4 toxicity, bipolar, dehydration, electrolyte abnormality. 18:40 Data reviewed: vital signs, nurses notes, lab test result(s), radiologic studies, I sb4 have discussed the patient's presentation/case with the attending Emergency Department Physician; and as a result, I will admit patient. 18:40 Historians other than the Patient: Spouse/Significant Other: significant other. sb4 Counseling: I had a detailed discussion with the patient and/or guardian regarding the historical points, exam findings, and any diagnostic results supporting the discharge/admit diagnosis, lab results, radiology results, the need for further work-up and treatment in the hospital. 22:10 Management of patient was discussed with the following: Pc Maintenance Technician: DR Lino Guerra, cp pc support specialist, will consult after discussion and patient admitted to service of hospitalist, MR Joel WEIGHT SHIFTER. 11/17 17:31 Order name: CBC with Diff; Complete Time: 18:11 sb4 11/17 17:31 Order name: CMP; Complete Time: 18:29 sb4 11/17 22:02 Interpretation: Normal except. cp 11/17 17:31 Order name: Lipase; Complete Time: 18:29 sb4 11/17 17:31 Order name: [place]; Complete Time: 18:28 sb4 11/17 17:31 Order name: CK; Complete Time: 18:29 sb4 11/17 17:31 Order name: COVID-19 Ag + Flu A+B Ag; Complete Time: 18:23 sb4 11/17 18:35 Order name: UDS; Complete Time: 22:01 sb4 11/17 18:40 Order name: Acetaminophen; Complete Time: 19:55 sb4 11/17 18:40 Order name: Salicylate; Complete Time: 19:55 sb4 11/17 18:40 Order name: ETOH Level; Complete Time: 19:55 sb4 11/17 18:40 Order name: Osmolality, Serum; Complete Time: 22:01 sb4 11/17 18:40 Order name: Urine Osmolality; Complete Time: 22:01 sb4 11/17 18:40 Order name: Urine Sodium Random; Complete Time: 22:01 sb4 11/17 18:40 Order name: Lactate w/ 2H reflex if indic.; Complete Time: 19:55 sb4 11/17 18:43 Order name: Troponin High Sensitivity; Complete Time: 19:55 sb4 11/17 22:08 Order name: UA Rfx [place]on Cult if indicated; Complete Time: 08:03 cp 11/17 23:48 Order name: CBC with Automated Diff EDMS 11/17 23:48 Order name: CBC with Automated Diff; Complete Time: 08:03 EDMS 11/17 23:48 Order name: CBC with Automated Diff EDMS 11/17 23:48 Order name: CBC with Automated Diff EDMS 11/17 23:48 Order name: Comprehensive Metabolic Panel EDMS 11/17 23:48 Order name: Comprehensive Metabolic Panel; Complete Time: 08:03 EDMS 11/17 23:48 Order name: Comprehensive Metabolic Panel EDMS 11/17 23:48 Order name: Comprehensive Metabolic Panel EDMS 11/17 23:48 Order name: Creatine Phosphokinase EDMS 11/17 23:48 Order name: Creatine Phosphokinase; Complete Time: 08:03 EDMS 11/17 23:48 Order name: Creatine Phosphokinase EDMS 11/17 23:48 Order name: Creatine Phosphokinase EDMS 11/17 23:48 Order name: Magnesium EDMS 11/17 23:48 Order name: Magnesium; Complete Time: 08:03 EDMS 11/17 23:48 Order name: Magnesium EDMS 11/17 23:48 Order name: Magnesium EDMS 11/17 18:31 Order name: CT Chest Abdomen Pelvis W/O Contrast; Complete Time: 19:55 sb4 11/17 23:44 Order name: Renal Ultrasound-Complete EDMS 11/17 23:44 Order name: Renal Ultrasound-Complete; Complete Time: 08:03 EDMS 11/17 18:43 Order name: EKG; Complete Time: 18:43 sb4 11/17 23:48 Order name: Dietitian Consult EDMS 11/17 17:31 Order name: IV Saline Lock; Complete Time: 17:53 sb4 11/17 17:31 Order name: Labs collected and sent; Complete Time: 17:53 sb4 11/17 18:43 Order name: EKG - Nurse/Tech; Complete Time: 19:22 sb4 11/17 22:06 Order name: [place]; Complete Time: 00:08 cp Administered Medications: 18:06 Drug: Ondansetron IVP 4 mg IVP once; over 2 minutes Route: IVP; Site: right antecubital;db 19:00 Follow up: Response: No adverse reaction ss12 18:06 Drug: NS 0.9% IV 1000 ml IV at 1 bolus Per protocol; to be given as a bolus over 60 db minutes Route: IV; Rate: 1 bolus; Site: right antecubital; 18:34 Drug: NS 0.9% IV 1000 ml IV at 1 bolus Per protocol; to be given as a bolus over 60 db minutes Route: IV; Rate: 1 bolus; Site: right antecubital; 19:00 Follow up: IV Status: Completed infusion; IV Intake: 1000ml ss12 22:30 Drug: NS 0.9% IV 1000 ml IV at 125 ml/hr Per protocol Route: IV; Rate: 125 ml/hr; Site: ss12 right antecubital; 23:30 Follow up: IV Status: Completed infusion; IV Intake: 1000ml ss12 Disposition Summary: 11/17/24 18:36 Hospitalization Ordered Notes: Hospitalization Status: Inpatient Admission sb4 Provider: Miguel Joel sb4 Condition: Fair sb4 Problem: new sb4 Symptoms: are unchanged sb4 Bed/Room Type: Standard sb4 Location: Telemetry/MedSurg (Inpatient)(11/18/24 00:03) Room Assignment: 221(11/18/24 00:03) Diagnosis - Acute kidney failure sb4 Forms: - Medication Reconciliation Form sb4 - SBAR form sb4 - Leadership Thank You Letter sb4 Signatures: Dispatcher [employer] EDKristine Graf RN Gurmeet Sky PA-C PA-C cp Benton, Danielle RN Leia Lucas PA-C PA-C sb4 Candace Fernandes RN RN me1 Lupe Andrade RN RN ss12 Corrections: (The following items were deleted from the chart) 17:32 17:31 CBC+H.LAB.BRZ ordered. EDMS EDMS 17:32 17:31 COMPREHENSIVE METABOLIC PANEL+C.LAB.BRZ ordered. EDMS EDMS 17:32 17:31 LIPASE+C.LAB.BRZ ordered. EDMS EDMS 17:32 17:31 LITHIUM+C.LAB.BRZ ordered. EDMS EDMS 17:32 17:31 CREATINE PHOSPHOKINASE+C.LAB.BRZ ordered. EDMS EDMS 17:32 17:32 COVID-19 Ag + Flu A+B Ag+I.LAB.BRZ ordered. EDMS EDMS 18:41 18:41 LACTATE+C.LAB.BRZ ordered. EDMS EDMS 18:36 Telemetry/MedSurg (Inpatient) sb4 18:36 sb4 11/18 00:03 11/17 22:07 Intensive Care Unit [facility] 11/18 00:03 11/17 22:07 [facility]
--- NOTE | 2024-11-17 18:36 | ER ---
Nurse's Notes [facility] Name: Isrrael Barrientos Age: 33 yrs Sex: Male : 1990 Arrival Date: 11/17/2024 Time: 17:13 Bed 13 Private MD: Diagnosis: Acute kidney failure Presentation: 11/17 17:33 Chief complaint: Patient states: started having n/v on . c/o n/v pain all over, me1 fatigue, dizziness and decreased appetite. Significant other concerned that patient's lithium and working out in the heat could be the cause of his illness. States they have decreased his lithium level recently. Coronavirus screen: Vaccine status: Patient reports receiving the 2nd dose of the covid vaccine. Ebola Screen: No symptoms or risks identified at this time. Initial Sepsis Screen: Does the patient meet any 2 criteria? No. Patient's initial sepsis screen is negative. Does the patient have a suspected source of infection? No. Patient's initial sepsis screen is negative. Risk Assessment: Do you want to hurt yourself or someone else? Patient reports no desire to harm self or others. Onset of symptoms was November 15, 2024. 17:33 Method Of Arrival: Ambulatory me1 17:33 Acuity: JAK 3 me1 Historical: - Allergies: 17:36 No Known Allergies; me1 - Home Meds: 21:43 metformin 1,000 mg oral tablet 2 times per day [Active]; lisinopril 40 mg oral tablet 1 ss12 tab daily [Active]; simvastatin 40 mg oral tablet 1 tab daily [Active]; omeprazole 40 mg Oral capsule,delayed release (e.c.) daily [Active]; lithium carbonate 150 mg oral capsule daily [Active]; haloperidol 5 mg oral tablet 1 tab daily [Active]; Seroquel 100 mg oral tablet 1 tab [Active]; lamotrigine 200 mg oral tablet 1 tab daily [Active]; - PMHx: 17:36 Anxiety; Bipolar disorder; Diabetes - NIDDM; Hypertension; Gastroesophageal reflux me1 disease; - PSHx: 17:36 None; me1 - Immunization history:: Adult Immunizations up to date. - Infectious Disease History:: Denies. - Social history:: Smoking status: Reported history of juuling and/or vaping. Screenin:52 [facility] ED Fall Risk Assessment (Adult) History of falling in the last 3 months, db including since admission No falls in past 3 months (0 pts) Confusion or Disorientation No (0 pts) Intoxicated or Sedated No (0 pts) Impaired Gait No (0 pts) Mobility Assist Device Used No (0 pt) Altered Elimination No (0 pt) Score/Fall Risk Level 0 - 2 = Low Risk Oriented to surroundings, Maintained a safe environment. Abuse screen: Denies threats or abuse. Denies injuries from another. Nutritional screening: No deficits noted. Tuberculosis screening: No symptoms or risk factors identified. Assessment: 18:12 Reassessment: Patient appears in no apparent distress at this time. Patient and/or db family updated on plan of care and expected duration. Pain level reassessed. Patient is alert, oriented x 3, equal unlabored respirations, skin warm/dry/pink. General: Appears in no apparent distress. comfortable, Behavior is calm, cooperative. Pain: Complains of pain in BODY. Neuro: Level of Consciousness is awake, alert, obeys commands, Oriented to person, place, time, situation. Respiratory: Airway is patent Respiratory effort is even, unlabored, Respiratory pattern is regular, symmetrical. 18:44 Reassessment: Patient appears in no apparent distress at this time. Patient and/or db family updated on plan of care and expected duration. Pain level reassessed. Patient is alert, oriented x 3, equal unlabored respirations, skin warm/dry/pink. 19:08 Reassessment: REPORT GIVEN TO PSYCHIATRIC RN RN. db 19:10 Reassessment: Patient appears in no apparent distress at this time. Patient and/or ss12 family updated on plan of care and expected duration. Pain level reassessed. Patient is alert, oriented x 3, equal unlabored respirations, skin warm/dry/pink. 20:00 Reassessment: Patient appears in no apparent distress at this time. Patient and/or ss12 family updated on plan of care and expected duration. Pain level reassessed. Patient is alert, oriented x 3, equal unlabored respirations, skin warm/dry/pink. 21:05 Reassessment: Patient appears in no apparent distress at this time. Patient and/or ss12 family updated on plan of care and expected duration. Pain level reassessed. Patient is alert, oriented x 3, equal unlabored respirations, skin warm/dry/pink. 22:10 Reassessment: Patient appears in no apparent distress at this time. Patient and/or ss12 family updated on plan of care and expected duration. Pain level reassessed. Patient is alert, oriented x 3, equal unlabored respirations, skin warm/dry/pink. 23:00 Reassessment: Patient appears in no apparent distress at this time. Patient and/or ss12 family updated on plan of care and expected duration. Pain level reassessed. Patient is alert, oriented x 3, equal unlabored respirations, skin warm/dry/pink. 11/18 00:05 Reassessment: pt agitated complaining of Lockwood being very painful and wanted to pull ss12 the Lockwood out. [facility] informed. Order received to removed the Lockwood and monitor strict in and out. Floor nurse called and notified of the change. 00:06 Reassessment: Patient appears in no apparent distress at this time. Patient and/or ss12 family updated on plan of care and expected duration. Pain level reassessed. Patient is alert, oriented x 3, equal unlabored respirations, skin warm/dry/pink. Vital Signs: 11/17 17:30 BP 94 / 45; Pulse 75; Resp 16; Pulse Ox 96% on R/A; db 17:33 BP 94 / 48; Pulse 74; Resp 17; Temp 98; Pulse Ox 96% ; Weight 113.4 kg; Height 5 ft. 8 me1 in. ; Pain 11/23; 18:00 BP 98 / 47; Pulse 73; Resp 16; Pulse Ox 97% on R/A; db 18:34 BP 98 / 49; Pulse 72; Resp 16; Pulse Ox 98% on R/A; db 19:45 BP 97 / 44; Pulse 68; Resp 16; Pulse Ox 100% on R/A; ss12 20:30 BP 94 / 39; Pulse 71; Resp 16; Pulse Ox 99% on R/A; ss12 21:30 BP 98 / 50; Pulse 84; Resp 16; Pulse Ox 97% on R/A; ss12 22:13 BP 91 / 45; Pulse 72; Resp 16; Pulse Ox 95% on R/A; ss12 23:30 BP 114 / 63; Pulse 85; Resp 16; Pulse Ox 97% on R/A; ss12 17:33 Body Mass Index 38.01 (113.40 kg, 172.72 cm) me1 17:33 Pain Scale: Adult me1 ED Course: 17:20 Patient arrived in ED. cj3 17:21 Leia Vogel PA-C is PHCP. sb4 17:21 Gonzalo Willis MD is Attending Physician. sb4 17:34 Gertrude Obregon, RN is Primary Nurse. db 17:36 Triage completed. me1 17:36 Arm band placed on Patient placed in an exam room. me1 17:52 Patient has correct armband on for positive identification. Bed in low position. Call db light in reach. Side rails up X 1. Pulse ox on. NIBP on. 17:52 Initial lab(s) drawn, by me, sent to lab. COVID swab sent to lab. Inserted saline lock: db 20 gauge in right antecubital area, using aseptic technique. Blood collected. Flushed with 10 mL NS. 17:55 COVID-19 Ag + Flu A+B Ag Sent. db 18:35 Miguel Joel, RN is Hospitalizing Provider. sb4 19:[address] via stretcher. db 19:04 Lab(s) recollected, by blood bank laboratory professional, sent to lab. ts3 19:09 CT Chest Abdomen Pelvis W/O Contrast In Process Unspecified. EDMS 19:22 EKG done, by central processing tech. reviewed by Gonzalo Willis MD. ts3 20:43 Urine collected: clean catch specimen, sent to lab. ts3 21:42 Lupe Andrade, RN is Primary Nurse. ss12 21:42 Provided Education on: plan of care. ss12 21:42 No provider procedures requiring assistance completed. ss12 23:03 PHCP role handed off by Leia Vogel PA-C cp 23:03 Gurmeet Dalal PA-C is PHCP. cp 23:30 Lockwood cath inserted, using sterile technique, 16 Fr., by ar, balloon inflated, urine 12 specimen collected. 11/18 00:05 returned Patient tolerated well. Lockwood cath removed intact, balloon deflated. ss12 01:05 Patient admitted, IV remains in place. ss12 Administered Medications: 11/17 18:06 Drug: Ondansetron IVP 4 mg IVP once; over 2 minutes Route: IVP; Site: right antecubital;db 19:00 Follow up: Response: No adverse reaction ss12 18:06 Drug: NS 0.9% IV 1000 ml IV at 1 bolus Per protocol; to be given as a bolus over 60 db minutes Route: IV; Rate: 1 bolus; Site: right antecubital; 18:34 Drug: NS 0.9% IV 1000 ml IV at 1 bolus Per protocol; to be given as a bolus over 60 db minutes Route: IV; Rate: 1 bolus; Site: right antecubital; 19:00 Follow up: IV Status: Completed infusion; IV Intake: 1000ml ss12 22:30 Drug: NS 0.9% IV 1000 ml IV at 125 ml/hr Per protocol Route: IV; Rate: 125 ml/hr; Site: ss12 right antecubital; 23:30 Follow up: IV Status: Completed infusion; IV Intake: 1000ml 12 Medication: 21:42 VIS not applicable for this client. ss12 Intake: 19:00 IV: 1000ml; Total: 1000ml. ss12 23:30 IV: 1000ml; Total: 2000ml. 12 Outcome: 18:36 Decision to Hospitalize by Provider. sb4 11/18 01:04 Admitted to Med/surg accompanied by tech, room 221, 12 Condition: stable 01:05 Patient left the ED. 12 Signatures: Dispatcher [employer] EDNM Gurmeet Dalal PA-C PA-C cp Benton, Danielle, RN RN Leia Souza PA-C PA-C sb4 Candace Fernandes, RN RN me1 Zora Pinon 3 Reta Shoemaker 3 Lupe Andrade RN RN 12
--- NOTE | 2024-11-17 19:43 | RAD REPORT ---
EXAM: CT CHEST, ABDOMEN AND PELVIS WITHOUT CONTRAST CLINICAL INDICATION: Chest and abdominal pain. Kidney failure TECHNIQUE: CT chest, abdomen and pelvis was performed, without IV contrast, as per department protoco l. Axial, sagittal and coronal reconstructions were obtained. One or more of the following dose reduction techniques were used: Automated exposure control, adjustment of the mA and/or kV according to the patient size, and/or iterative reconstruction. Unless otherwise specified, incidental findings do not require dedicated imaging follow-up. The lack of IV and oral contrast limits evaluation of the mediastinum, vangie, vessels, organs and mehnaz l. COMPARISON: June 2024 FINDINGS: Lungs are clear. No mediastinal or hilar lymphadenopathy seen. No pleural effusion. No pericardial effusion. Liver, spleen, pancreas, adrenals kidneys and bladder appear grossly normal No hydronephrosis. There is no evidence of diverticulitis. No colitis. Small inguinal hernias Normal appendix IMPRESSION: No acute abnormalities displayed
[2024-11-17 21:02] LABS: METHAMPHETAM NEGATIVE (NEGATIVE); THC Cannibis NEGATIVE (NEGATIVE)
[2024-11-17] MEDS ORDERED: LIDOCAINE VISCOUS 2% 10ML ORAL SOLN ONE (23:04)
--- NOTE | 2024-11-17 23:41 | P.HP ---
Certification for Inpatient Patient admitted to: Observation With expected LOS: <2 Midnights Patient will require the following post-hospital care: None Practitioner: I am a practitioner with admitting privileges, knowledge of patient current condition, hospital course, and medical plan of care. Services: Services provided to patient in accordance with Admission requirements found in Title 42 Section 412.3 of the Code of Federal Regulations Patient History Date of Service: 11/17/24 Reason for admission: Acute renal failure, fatigue. History of Present Illness: Patient is a 33-year-old male with past medical history of anxiety, psychosis, bipolar disorder, hypertension, hypercholesteremia, type 2 diabetes mellitus, brought to the ER today complaining of generalized body weakness, generalized body pain, fatigue, loss of appetite. According to present at bedside, she states patient started vomiting on , nonbilious and nonbloody content, and complaining of feeling dizzy, fatigued, not feeling well. She states patient symptoms progressively worsened today which then prompted for patient to be brought to the ER. Patient denies of any associated chest pain or shortness of breath. She states about 5 months ago in June/2024, patient was admitted to the hospital with lithium toxicity, and after his discharge, he went and saw his psychiatrist and some medications adjustment were made. She states she has been giving patient half the dose of his prescribed psychotic medications, states she give patient lithium 150 mg daily rather than 300 mg daily, Seroquel 100 mg daily, Haldol 5 mg daily. Patient lithium level was less than 0.2 today in ER. 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 Patient renal panel was very concerning today, BUN 46, creatinine 9.67, GFR 7. In June/2024, patient creatinine was 1.3. Informatics Educator Dr. Guerra was consulted while in ER, requested patient to be admitted and to start patient on IV NS at 125 mL/ hr, renal ultrasound in AM. Patient currently denies of any body aches at this time, denies of chest pain or shortness of breath, denies of headaches, denies of nausea or vomiting, patient in no acute distress this time. Patient states he is still able to void. Course in ER. (1) CT chest, abdomen, pelvis without contrast. Impression: No acute abnormality is displayed. Allergies No Known Allergies Allergy (Verified 11/18/24 01:06) Home Medications: Esomeprazole Magnesium 40 mg PO BEDTIME 06/20/24 Metformin HCl 1,000 mg PO BID 06/20/24 Quetiapine [Seroquel*] 100 mg PO BEDTIME 06/20/24 Simvastatin 1 tab PO BEDTIME 06/20/24 haloperidoL [Haldol] 5 mg PO DAILY 06/20/24 lamoTRIgine [Lamictal] 200 mg PO DAILY 06/20/24 lisinopriL [Lisinopril] 40 mg PO BEDTIME 06/20/24 Pantoprazole [Protonix Tab] 40 mg PO DAILY 30 Days #30 tab 06/23/24 [place] Carbonate [Lithotabs *] 150 mg PO BEDTIME 11/18/24 - Past Medical/Surgical History Diabetic: Yes -: Anxiety -: Psychosis -: Bipolar -: Hypertension -: Hyperlipidemia -: DMNIDDM -: Patient states he does not have any past surgical history. - Family History Family History: Reviewed- Non-Contributory - Social History Smoking Status: Current every day smoker (Patient states he does not smoke cigarette but he vapes.) Alcohol use: No CD- Drugs: No Caffeine use: No Place of Residence: Home Physical Examination - Studies Laboratory Data (last 24 hrs) 11/17/24 11/17/24 17:52 17:52 WBC 10.00 Hgb 13.6 Hct 39.1 L Plt Count 268 Sodium 133 L Potassium 4.1 BUN 46 H Creatinine 9.67 H Glucose 187 H Total Bilirubin 0.5 AST 20 ALT 64 H Alkaline Phosphatase 59 Lipase 51 Assessment and Plan - Plan Patient admitted to observation with diagnosis of acute kidney failure. (1)Acute kidney failure. Patient BUN 46, creatinine 9.67, GFR 7. -IV NS 125 mL/ hr. -Order complete renal ultrasound to be done in a.m. -Will hold patient psychiatric medications at this time which appears to be the cause of patient worsening renal panel. -Had a lengthy discussion with the patient, and , to make sure patient follows up with his psychiatrist, for possible medications adjustment or changes of some of his medications, since it appears to be causing worsening renal failure, and he voiced understanding. -Lockwood catheter was ordered as requested by reconciliation manager, but patient refused insertion. -Order strict I and O. (2)Chronic type 2 diabetes mellitus. -Order ACHS with moderate sliding scale coverage. -Held patient metformin at this time due to worsening renal. (3)Chronic GERD. -Protonix 40 mg IV daily. (4)Explained entire treatment plan to the patient and present at the bedside, solicited questions answered and voiced understanding. - Advance Directives Does patient have a Living Will: No Does patient have a Durable POA for Healthcare: No
[2024-11-17] MEDS ORDERED: ACETAMINOPHEN 325 MG TABLET PO PRN (23:42)
[2024-11-17] MEDS ORDERED: ONDANSETRON 4 MG/2 ML VIAL IV PRN (23:42)
[2024-11-17 23:43] LABS: Sqamous Epithelial <5 /HPF (None Seen); Urine Culture Reflex Order NOT NEEDED; Urine Microscopic Reflex YN ORDER UMIC
[2024-11-18] MEDS: HEPARIN 5000 UNIT/ML 1 ML VIAL SQ SCH (01:13)
[2024-11-18] MEDS: NA CHLORIDE 0.9% 1,000 ML IV SCH (01:13)
[2024-11-18 01:38] VITALS: BMI 31.3
[2024-11-18 02:01] VITALS: O2SAT 97
[2024-11-18 05:27] LABS: Absolute Lymphocytes (CBC) 2.4 K/uL (0.7-4.9); Hematocrit 31.5 % (39.6-49.0); Hemoglobin 11.1 g/dL (13.6-17.9); MCH 31.8 pg (27.0-35.0); MCHC 35.3 g/dL (32.0-36.0); MCV 90.1 fL (80-100); MPV 9.2 fL (7.6-11.3); Nucleated RBC Absolute Count 0.0 (0-0); Nucleated Red Blood Cells % 0.1 % (0-0); RBC Red Blood Cell Count 3.49 M/uL (4.33-5.43); White Blood Count 8.00 thou/uL (4.3-10.9)
[2024-11-18] MEDS ORDERED: SODIUM CHLORIDE 0.9% 10ML INJ IV PRN (05:27)
[2024-11-18 06:11] LABS: ALT/SGPT 48.0 U/L (16-61); AST/SGOT 16.0 U/L (15-37); Albumin 3.4 g/dL (3.4-5.0); Albumin/Globulin Ratio 1.4 (1.1-1.8); Alkaline Phosphatase 53.0 U/L (45-117); Anion Gap 11.0 mEq/L (5.0-15.0); BUN Blood Urea Nitrogen 45.0 mg/dL (7-18); Globulin 2.4 g/dL (2.3-3.5); Glucose Level 157.0 mg/dL (74-106); Magnesium 2.2 mg/dL (1.6-2.4); Potassium 4.0 mEq/L (3.5-5.1)
--- NOTE | 2024-11-18 07:28 | RAD REPORT ---
EXAMINATION: US RETROPERITONEUM CLINICAL INDICATION: Acute renal failure TECHNIQUE: Real-time ultrasonography of the abdomen was performed. COMPARISON: 06/20/24 FINDINGS: RIGHT KIDNEY: Right renal length measurement: 12.7 cm. Echogenicity is normal. No calculus or solid mass. No hydronephrosis. . LEFT KIDNEY: Left renal length measurement: 12.9 cm. Echogenicity is normal. No calculus or solid m ass. No hydronephrosis. . ADDITIONAL FINDINGS: N/A IMPRESSION: No acute findings identified. No evidence of hydronephrosis.
[2024-11-18] MEDS: FLU (Fluarix) 25-26 (6MOS UP)/PF 45 MCG/0.5 ML Syringe IM ONE (08:00)
[2024-11-18] MEDS: PANTOPRAZOLE 40 MG INJ IVP SCH (09:21)
--- NOTE | 2024-11-18 09:36 | P.PN ---
Date of Service: 11/18/24 Subjective: No acute events overnight Renal function improving with IV fluids ROS: 10 point ROS as noted above, otherwise negative Physical exam GEN: Alert, oriented, NAD HEENT: Normal conjunctiva, sclera anicteric CV: Regular rate and rhythm, no edema Pulm: Nonlabored respirations on room air ABD: Soft, nontender, nondistended MSK: No joint tenderness Integumentary: No rashes Neuro: Normal speech, normal affect Vitals reviewed Assessment: Acute kidney injury Diabetes mellitus type [id number] Bipolar disorder Hypertension Hyperlipidemia Plan: Acute kidney injury Reports relatively regular use of NSAIDsAleve, counseled against this will hold NSAIDs CPK within normal limits, lactate level normal Renal ultrasound without any hydronephrosis Renal function proved with IV fluids, continue IV fluids Hold lisinopril, metformin on the second occasions for now, Diabetes mellitus type [id number] ACHS Accu-Chek, sliding scale insulin Bipolar disorder Given severe renal dysfunction will hold antipsychotics for now Hypertension Hold lisinopril Hyperlipidemia Continue statin DVT PPX: Heparin subcu Code status:Full code Time Spent Managing Pts Care (In Minutes): 35
[2024-11-18] MEDS: NICOTINE 14 MG/PAT TD SCH (21:00)
[2024-11-19 06:43] LABS: Absolute Lymphocytes (CBC) 2.7 K/uL (0.7-4.9); Hematocrit 34.5 % (39.6-49.0); Hemoglobin 12.3 g/dL (13.6-17.9); MCH 32.0 pg (27.0-35.0); MCHC 35.5 g/dL (32.0-36.0); MCV 90.2 fL (80-100); MPV 9.1 fL (7.6-11.3); Nucleated RBC Absolute Count 0.0 (0-0); Nucleated Red Blood Cells % 0.2 % (0-0); RBC Red Blood Cell Count 3.83 M/uL (4.33-5.43); White Blood Count 5.70 thou/uL (4.3-10.9)
[2024-11-19 07:04] LABS: ALT/SGPT 56.0 U/L (16-61); AST/SGOT 23.0 U/L (15-37); Albumin 3.6 g/dL (3.4-5.0); Albumin/Globulin Ratio 1.2 (1.1-1.8); Alkaline Phosphatase 47.0 U/L (45-117); Anion Gap 8.3 mEq/L (5.0-15.0); BUN Blood Urea Nitrogen 17.0 mg/dL (7-18); Globulin 2.9 g/dL (2.3-3.5); Glucose Level 124.0 mg/dL (74-106); Magnesium 1.9 mg/dL (1.6-2.4); Potassium 4.3 mEq/L (3.5-5.1)
--- NOTE | 2024-11-19 09:13 | P.PN ---
Date of Service: 11/19/24 Subjective: Renal function significantly improved overnight No acute events overnight ROS: 10 point ROS as noted above, otherwise negative Physical exam GEN: Alert, oriented, NAD HEENT: Normal conjunctiva, sclera anicteric CV: Regular rate and rhythm, no edema Pulm: Nonlabored respirations on room air ABD: Soft, nontender, nondistended MSK: No joint tenderness Integumentary: No rashes Neuro: Normal speech, normal affect Vitals reviewed Assessment: Acute kidney injury Diabetes mellitus type [id number] Bipolar disorder Hypertension Hyperlipidemia Plan: Acute kidney injury Reports relatively regular use of NSAIDsAleve, counseled against this will hold NSAIDs CPK within normal limits, lactate level normal Renal ultrasound without any hydronephrosis Renal function back to normal at this time Repeat chemistry this afternoon to confirm Diabetes mellitus type [id number] ACHS Accu-Chek, sliding scale insulin Bipolar disorder Hold medications for now Hypertension Hold lisinopril Hyperlipidemia Continue statin DVT PPX: Heparin subcu Code status:Full code Time Spent Managing Pts Care (In Minutes): 35
[2024-11-19 13:00] LABS: Anion Gap 7.5 mEq/L (5.0-15.0); BUN Blood Urea Nitrogen 14.0 mg/dL (7-18); Glucose Level 129.0 mg/dL (74-106); Potassium 4.5 mEq/L (3.5-5.1)
[2024-11-19 16:09] VITALS: BP 121/78; TEMP 97.9
--- NOTE | 2024-11-19 16:42 | P.DS ---
Admission Date: 11/18/24 Discharge Date: 11/19/24 Disposition: ROUTINE DISCHARGE Discharge Condition: FAIR Reason for Admission: Acute renal failure, fatigue. Brief History of Present Illness: 33-year-old male with past medical history of anxiety, psychosis, bipolar disorder, hypertension, hypercholesteremia, type 2 diabetes mellitus, brought to the ER today complaining of generalized body weakness, generalized body pain, fatigue, loss of appetite. According to , patient vomited multiple times. Patient's symptoms progressively worsened which then prompted the ED visit. Patient has a prior history of hospitalization for lithium toxicity after which his psychiatrist made some adjustment in his medications. According to the patient was taking only half the dose of his prescribed antipsychotics including lithium. Patient was evaluated in the ED, his lithium level was low. His renal function showed BUN 46, creatinine 9.67, GFR 7. In June/2024, patient creatinine was 1.3. Drug Safety Assistant Dr. Guerra was consulted and patient admitted for further management of GINGER. Hospital Course: Assessment: Acute kidney injury Diabetes mellitus type [id number] Bipolar disorder Hypertension Hyperlipidemia Patient was admitted to the medical floor and hydrated with IV fluid. Serum creatinine improved to normal, GINGER resolved. Patient was asymptomatic during the hospital stay. He tolerated diet. His antipsychotic medications were held of note patient was also taking lisinopril and sometimes NSAIDs which could have exacerbated the GINGER. He was seen in consultation by nephrology Dr. Singh who assisted with management. Renal ultrasound was unremarkable, no obstruction or hydronephrosis. Patient is asymptomatic with stable vitals, he is deemed stable for discharge. Vital Signs/Physical Exam: Temp Pulse Resp BP Pulse Ox 97.9 F 66 16 121/78 97 11/19/24 16:00 11/19/24 16:00 11/19/24 16:00 11/19/24 16:00 11/19/24 16:00 General: Alert, In no apparent distress, Oriented x3 HEENT: Mucous membr. moist/pink, Sclerae nonicteric Neck: Supple, JVD not distended Respiratory: Clear to auscultation bilaterally, Normal air movement Cardiovascular: No edema, Regular rate/rhythm, Normal S1 S2 Gastrointestinal: Normal bowel sounds, Soft and benign, Non-distended, No tenderness Musculoskeletal: No swelling Integumentary: No rashes, No cyanosis Neurological: Normal speech, Normal strength at 5/5 x4 extr Laboratory Data at Discharge: WBC 5.70 thou/uL (4.3-10.9) 11/19/24 06:07 Hgb 12.3 g/dL (13.6-17.9) L D 11/19/24 06:07 Hct 34.5 % (39.6-49.0) L 11/19/24 06:07 Plt Count 214 thou/uL (152-406) 11/19/24 06:07 Sodium 139 mEq/L (136-145) 11/19/24 12:29 Potassium 4.5 mEq/L (3.5-5.1) 11/19/24 12:29 BUN 14 mg/dL (7-18) 11/19/24 12:29 Creatinine 0.88 mg/dL (0.70-1.30) 11/19/24 12:29 Glucose 129 mg/dL (74-106) H 11/19/24 12:29 Magnesium 1.9 mg/dL (1.6-2.4) 11/19/24 06:07 Total Bilirubin 0.2 mg/dL (0.2-1.0) 11/19/24 06:07 AST 23 U/L (15-37) 11/19/24 06:07 ALT 56 U/L (16-61) 11/19/24 06:07 Alkaline Phosphatase 47 U/L (45-117) 11/19/24 06:07 Lipase 51 U/L (13-75) 11/17/24 17:52 Home Medications: Esomeprazole Magnesium 40 mg PO BEDTIME 06/20/24 Metformin HCl 1,000 mg PO BID 06/20/24 Quetiapine [Seroquel*] 100 mg PO BEDTIME 06/20/24 Simvastatin 1 tab PO BEDTIME 06/20/24 haloperidoL [Haldol] 5 mg PO DAILY 06/20/24 lamoTRIgine [Lamictal*] 200 mg PO DAILY 06/20/24 lisinopriL [Lisinopril] 40 mg PO BEDTIME 06/20/24 [place] Carbonate [Lithotabs *] 150 mg PO BEDTIME 11/18/24 Diet: AHA Activity: Ad heladio Followup: Paulo Singh DO [ACTIVE - CAN ADMIT] - 1-2 Weeks Noble Gracia [ACTIVE - CAN ADMIT] - 1-2 Weeks NONE,NONE [Primary Care Provider] - 1-2 Weeks Time spent managing pt's care (in minutes): 32
== END 2024-11-19 18:23 | disposition home or self-care (01) | DRG 684 ==
LOC: ER 17:13 → ERHOLD 23:35 → 2ND 11-18 00:27 → OBSVTOIN 11-18 06:14
PROVIDERS: ADMIT Internal Medicine; ATTEND Internal Medicine
PROC: 0T9B70Z Drainage of Bladder with Drainage Device, Via Natural or Artificial Opening (ICD-10-PCS; principal; 2024-11-17)
DX: N17.9 Acute kidney failure, unspecified (principal); F31.9 Bipolar disorder, unspecified; E11.9 Type 2 diabetes mellitus without complications; I10 Essential (primary) hypertension; E78.00 Pure hypercholesterolemia, unspecified; K21.9 Gastro-esophageal reflux disease without esophagitis; F17.290 Nicotine dependence, other tobacco product, uncomplicated; Z11.52 Encounter for screening for COVID-19; Z79.84 Long term (current) use of oral hypoglycemic drugs; Z79.899 Other long term (current) drug therapy
CPT/HCPCS: 36415; 51702; 71250; 74176; 76770; 80048; 80053; 80143; 80178; 80179; 80307; 81001; 82077; 82550; 82947; 83605; 83690; 83735; 83930; 83935; 84300; 84484; 85025; 87428; 93005; 96361; 96374; 99285; G0378; J1644; J2405; J2470; J7030